=== PATIENT | female | born 1985 | race Caucasian/White ===

== ENCOUNTER → 2019-06-27 08:04 | Outpatient (BNVA) | payer MEDICARE, MEDICAID, SELFPAY | PROVIDERS: Family Provider Internal Medicine; PCP Family Medicine; Visit Provider Nurse Practitioner Psychiatric/Mental Health | DX: F40.10 Social phobia, unspecified (principal); F17.210 Nicotine dependence, cigarettes, uncomplicated; F60.3 Borderline personality disorder; F31.64 Bipolar disorder, current episode mixed, severe, with psychotic features | CPT/HCPCS: 99213 ==

== ENCOUNTER 2019-07-29 12:49 | Emergency (ER) | payer MEDICARE, MEDICAID, SELFPAY ==
[2019-07-29 13:06] VITALS: BP 131/82; PULSE 74; RESP 15; TEMP 36.6; O2SAT 98; BMI 41.4
--- NOTE | 2019-07-29 13:19 | XR_ITS ---
WS: [id number] RIGHT KNEE 3 VIEWS HISTORY: 33 years old Female with pain, injury AP, oblique, and lateral views right knee comparison 11/25/2010 FINDINGS: No fracture lucency or cortical disruption. No dislocation or subluxation. No osteolytic or osteoblas tic change. No soft tissue calcifications or radiopaque foreign body. No joint effusion. XR/XR knee RT 3V* [id number] IMPRESSION: No evidence of right knee fracture or dislocation.
--- NOTE | 2019-07-29 13:20 | W.ED.EXTPRO ---
HPI - Extremity Problem General: Chief complaint: Extremity Injury, Lower Stated complaint: right knee pain Time Seen by Provider: 07/29/19 13:16 History of Present Illness: HPI Narrative: Patient comes in today with injury to the right knee. Patient reports that 1 week ago on Wednesday the second she was going down the stairs and missed a step and catching herself she injured her right knee. Patient does not remember how she actually done it but she has had increasing pain since then. Patient reports a history of previous knee problems to the cartilage in the right knee. Review of Systems General: Reports: 10 or more systems reviewed and unremarkable except in HPI and below Musc: Reports: joint pain (right knee) PFSH ED PFSH: Statuses (acute, chronic, etc) shown below reflect problem list status as previously entered and may not be historically accurate Medical History (Updated 07/29/19 @ 13:42 by CECILE Remy) Bipolar disorder, current episode mixed, severe, with psychotic features (Acute) Borderline personality disorder (Acute) Chronic back pain (Acute) Cigarette nicotine dependence (Acute) Social phobia, unspecified (Acute) Family History (Updated 07/10/19 @ 07:56 by Earline Geller RN) Father Heart disease valve surgery Grandmother Diabetes paternal Social History (Updated 07/14/19 @ 08:56 by Earline Geller RN) Smoking and tobacco status: current every day smoker cigarettes Packs smoked per day: 1 Years cigarettes smoked: 11 Quit status (tobacco): considering quitting Second hand smoke exposure: Yes Alcohol intake: never Physical Exam Const: COMMON NORMALS: no apparent distress and oriented x3 GENERAL APPEARANCE: cooperative HENMT: COMMON NORMALS: normocephalic, external ears normal, EAC's normal, TM's normal bilaterally and external nose normal HEAD & SCALP: normal to inspection and normocephalic FACE & SINUS: normal facial exam NOSE: external nose normal GENERAL EAR: hearing not grossly impaired EXTERNAL EAR: Yes external ears normal EXTERNAL AUDITORY CANAL: EAC's normal TYMPANIC MEMBRANE: TM's normal bilaterally MOUTH: oral and palatal mucosa normal THROAT: posterior oropharynx normal Eye: COMMON NORMALS: PERRL and EOMs intact bilaterally PUPIL: Yes PERRL Neck/C-Spine: COMMON NORMALS: full ROM and no lymphadenopathy Lymph: LYMPHATIC: no lymphedema noted Chest: COMMONS NORMALS: inspection of chest normal and palpation of chest normal Resp: COMMON NORMALS: normal respiratory effort and clear to auscultation bilaterally AUSCULTATION: clear to auscultation bilaterally Cardio: COMMON NORMALS: regular rate and regular rhythm RATE: regular rate RHYTHM: regular rhythm GI: COMMON NORMALS: normal to inspection, nondistended, normoactive bowel sounds and non-tender : COMMON NORMALS: Yes no CVA tenderness BLADDER/KIDNEY EXAM: Yes no CVA tenderness Back/Pelvis: COMMON NORMALS: no CVA tenderness and thoracic and lumbar spine normal to inspection Extremity: NARRATIVE EXTREMITY EXAM: decreased range of motion of flexion and extension of the knee, medial joint tenderness, soft swelling. wjw GENERAL: Yes edema (right knee) Neuro: COMMON NORMALS: oriented x3, moves all extremities and no focal motor deficits Psych: COMMON NORMALS: mental status grossly normal and cooperative Skin: COMMON NORMALS: no rashes or lesions noted GENERAL SKIN EXAM: no rashes or lesions noted Course Vital Signs: Vital signs: Vital Signs Temperature 97.9 F 07/29/19 13:06 Pulse Rate 63 07/29/19 14:22 Respiratory Rate 16 07/29/19 14:22 Blood Pressure 131/82 07/29/19 13:06 Pulse Oximetry 97 07/29/19 14:22 MDM - Extremity (Nontraumatic) MDM Narrative: Medical decision making narrative: Patient comes in today with complaints of right knee pain. Patient appears in no pain at rest. Patient reported injury when she stepped down off a step wrong about 1 week ago. Exam notes some anterior swelling to the knee, normal laxity, decreased range of motion with flexion and extension. Differential diagnosis includes knee sprain, meniscal injury, arthritis, bursitis. X-ray was negative for any significant injury or abnormality. Reviewed exam with patient recommended activity as tolerated. Will place on diclofenac for pain and swelling. Recommend follow-up with primary care in 1 week for further evaluation and treatment. Discharge Plan Discharge Patient Disposition: Home, Self-Care Clinical Impression: Injury of knee, right Qualifiers: Encounter type: initial encounter Qualified Code(s): S89.91XA - Unspecified injury of right lower leg, initial encounter Condition: Stable Prescriptions: New diclofenac sodium 75 mg tablet,delayed release (DR/EC) 75 mg PO BID Qty: 20 RF: 0 No Action multivitamin with minerals [Hair,Skin and Nails] Tablet 1 tab PO DAILY RF: 0 trazodone 100 mg tablet 100 mg PO .QHS Qty: 30 RF: 4 topiramate [Topamax] 100 mg tablet 100 mg PO BID Qty: 60 RF: 4 topiramate [Topamax] 50 mg tablet 50 mg PO BID Qty: 60 RF: 4 lorazepam [Ativan] 0.5 mg tablet 0.5 mg PO BID PRN (Reason: anxiety) Qty: 60 RF: 3 albuterol sulfate [Ventolin HFA] 90 mcg/actuation HFA aerosol inhaler 2 puff INHALATION Q6H PRNRF: 0 albuterol sulfate 2.5 mg /3 mL (0.083 %) solution for nebulization 2.5 mg INHALATION QID PRNRF: 0 acetaminophen [Tylenol] 325 mg tablet 650 mg PO TID PRNRF: 0 haloperidol 2 mg tablet 2 mg PO BID Qty: 30 RF: 4 Discharge Orders: Discharge Order (Routine); Ordered 07/29/19 Ordered By: Karl Cordero Referrals: ALE GLASS DO [Family Provider] - Marisela De Leon MD [Primary Care Provider] - Discharge Diet: Usual diet Discharge Activity: Increase activity as tolerated Patient Instructions: Knee Sprain (ED) Activity Restrictions/Additional Instructions: Elastic bandage for discomfort and swelling Use crutches until you can walk comfortably on leg Ice or heat for further comfort Follow-up with primary care in one week Return to ER for distal redness and swelling to the knee Discharge Date/Time: 07/29/19 14:23 Coding Level of Care Code ED Histologist Technologist for Chg Fwd Exam Problem Focused
[2019-07-29] MEDS: ketorolac 30 mg/mL INJ IM (14:05)
[2019-07-29 14:22] VITALS: PULSE 63; RESP 16; O2SAT 97
== END 2019-07-29 14:23 | disposition home or self-care (01) ==
PROVIDERS: Emergency Provider Nurse Practitioner Family; Family Provider Internal Medicine; PCP Family Medicine
DX: S89.91XA Unspecified injury of right lower leg, initial encounter (principal); W18.43XA Slipping, tripping and stumbling without falling due to stepping from one level to another, initial encounter; F17.210 Nicotine dependence, cigarettes, uncomplicated
CPT/HCPCS: 73562; 96372; 99281; 99283; J1885

== ENCOUNTER 2019-08-16 07:00 | Day surgery (SDC) | payer MEDICARE, MEDICAID, SELFPAY ==
[2019-08-15 10:43] VITALS: BMI 41.8
[2019-08-15 10:56] LABS: OR HCG Qualitative Urine Negative (Negative)
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
[2019-08-15 11:28] LABS: Basophils % 0.4 %; Eosinophils # 0.1 10^3/uL (0.0-0.8); Eosinophils % 1.5 %; Hematocrit 44.1 % (37.0-47.0); Hemoglobin 14.9 g/dL (11.5-15.3); Lymphocytes # 2.9 10^3/uL (0.8-4.8); Lymphocytes % 30.3 %; Mean Corpuscular HGB Conc 33.8 g/dL (30.0-36.0); Mean Corpuscular Hemoglobin 29.4 pg (28.0-34.0); Mean Corpuscular Volume 87.2 fL (81-99); Mean Platelet Volume 10.1 fL (7.4-10.4); Monocytes # 0.6 10^3/uL (0.2-0.9); Monocytes % 5.9 %; Neutrophils # 5.8 10^3/uL (1.8-7.7); Neutrophils % 61.8 %; Nucleated Red Blood Cells % 0 %; Platelet Count 261 10^3/cmm (130-400); Red Blood Count 5.06 10^6/uL (4.1-5.3); White Blood Count 9.4 10^3/uL (4.0-10.0)
[2019-08-15 11:39] LABS: Alanine Aminotransferase 15 U/L (0-33); Albumin Level 4.4 g/dL (3.5-5.2); Alkaline Phosphatase 82 IU/L (35-105); Anion Gap 15.9 (5-19); Aspartate Amino Transferase 13 U/L (0-32); Blood Urea Nitrogen 14 mg/dL (6-20); Calcium 9.6 mg/dL (8.5-10.5); Carbon Dioxide 19 mmol/L (22-29); Chloride 106 mmol/L (98-107); Globulin 2.5 g/dL (1.3-4.6); Glomerular Filtration Rate 57.2 mL/min (90-130); Glucose 86 mg/dL (65-115); Potassium 3.9 mmol/L (3.5-5.1); Sodium 137 mmol/L (136-145); Total Bilirubin 0.2 mg/dL (0.15-1.2); Total Protein 6.9 g/dL (6.6-8.7)
[2019-08-15 16:20] LABS: Add Urine Microscopic? NO
[2019-08-15 16:36] LABS: Bilirubin Urine Neg (NEGATIVE); Blood Urine Neg (Negative); Glucose Urine UA Norm (Normal); Ketones Urine Negative (Negative); Leukocyte Esterase Urine Negative (Negative); Nitrate Urine Negative (Negative); Protein Urine Neg (Negative); Urine Appearance Clear (CLEAR); Urine Color Yellow (Yellow); Urobilinogen Urine Norm (Negative); pH Urine 7 (5-7)
[2019-08-16] VITALS (7 sets, daily range): BP systolic 131–153; BP diastolic 59–86; PULSE 60–83; RESP 16–20; TEMP 36.3–36.6; O2SAT 96–100
[2019-08-16] MEDS: sodium chloride 0.9% 1,000 ML 30 ML IV (07:36)
[2019-08-16] MEDS: ketorolac 30 mg/mL INJ IVP (07:36)
--- NOTE | 2019-08-16 07:39 | P.ANESUD_ITS ---
Pre-Anesthetic Update Pre-Anesthetic Assessment: Date of Surgery/Procedure: 08/16/19 Preop Jes gnosis: Desire permanent sterilization Proposed Procedure: Operation Date: 08/16/19 08:30 Proposed Procedures p Laparoscopic Tubal Fulguration 23049 Z30.2(Not Applicable) - Tyrell Nguyen MD Any changes to Pre-Anesthetic Assessment?: No Last Intake: Intake Last Liquid Date 08/15/19 Last Liquid Time 21:00 Last Solid Date 08/15/19 Last Solid Time 20:00 Labs Last 48hrs: Laboratory Results - last 48 hr 08/15/19 08/15/19 08/15/19 10:23 10:28 10:30 WBC 9.4 RBC 5.06 Hgb 14.9 Hct 44.1 MCV 87.2 MCH 29.4 MCHC 33.8 RDW 13.0 Plt Count 261 MPV 10.1 Neut % (Auto) 61.8 Lymph % (Auto) 30.3 [place] % (Auto) 5.9 Eos % (Auto) 1.5 Baso % (Auto) 0.4 Neut # (Auto) 5.8 Lymph # (Auto) 2.9 [place] # (Auto) 0.6 Eos # (Auto) 0.1 Baso # (Auto) 0.0 Nucleated RBC % (a uto) 0 Nucleated RBCs # 0.0 Sodium Potassium Chloride Carbon Dioxide Anion Gap BUN Creatinine GFR Calculation Glucose Calcium Total Bilirubin AST ALT Alkaline Phosphata se Total Protein Albumin Globulin Urine Color Yellow Urine Appearance Clear Urine pH 7 Ur Specific Gravit y 1.010 Urine Protein Neg Urine Glucose (UA) Norm Urine Ketones Negative Urine Blood Neg Urine Nitrate Negative Urine Bilirubin Neg Urine Urobilinogen Norm Ur Leukocyte Ida ase Negative Urine HCG, Qual Negative Blood Type Antibody Screen 08/15/19 08/15/19 10:30 10:30 WBC RBC Hgb Hct MCV MCH MCHC RDW Plt Count MPV Neut % (Auto) Lymph % (Auto) [place] % (Auto) Eos % (Auto) Baso % (Auto) Neut # (Auto) Lymph # (Auto) [place] # (Auto) Eos # (Auto) Baso # (Auto) Nucleated RBC % (a uto) Nucleated RBCs # Sodium 137 Potassium 3.9 Chloride 106 Carbon Dioxide 19 L Anion Gap 15.9 BUN 14 Creatinine 1.1 H GFR Calculation 57.2 L Glucose 86 Calcium 9.6 Total Bilirubin 0.2 AST 13 ALT 15 Alkaline Phosphata se 82 Total Protein 6.9 Albumin 4.4 Globulin 2.5 Urine Color Urine Appearance Urine pH Ur Specific Gravit y Urine Protein Urine Glucose (UA) Urine Ketones Urine Blood Urine Nitrate Urine Bilirubin Urine Urobilinogen Ur Leukocyte Ida ase Urine HCG, Qual Blood Type A Positive Antibody Screen Negative Vitals: Temperature 97.3 F L 08/16/19 07:11 Temperature Source Temporal Artery S can 08/16/19 07:11 Pulse Rate 78 08/16/19 07:11 Respiratory Rate 18 08/16/19 07:11 Blood Pressure 142/84 08/16/19 07:11 Blood Pressure Trish n 103 08/16/19 07:11 Pulse Oximetry 97 08/16/19 07:11 Oxygen Delivery Me thod 08/16/19 07:11 Exam: Pre-Anes Outpt Exam: alert, oriented x 3, clear to auscultation bilaterally and regular rate & rhythm Other Pertinent Information: Other Pertinent Information: No meds this morning Cardiac Studies: No Data to Display
--- NOTE | 2019-08-16 08:07 | P.ANESASSM_ITS ---
Pre-Anesthetic Assessment Pre-Anesthetic Assessment: Height/Weight: Height 1.78 m Weight 132.449 kg Temp Pulse Resp BP Pulse Ox 97.3 F L 78 18 142/84 97 08/16/19 07:11 08/16/19 07:11 08/16/19 07:11 08/16/19 07:11 08/16/19 07:11 Preop Diagnosis: Desire permanent sterilization Proposed Procedure: Operation Date: 08/16/19 08:30 Proposed Procedures p Laparoscopic Tubal Fulguration 34070 Z30.2(Not Applicable) - Tyrell Nguyne MD Last intake: Intake Last Liquid Date 08/15/19 Last Liquid Time 21:00 Last Solid Date 08/15/19 Last Solid Time 20:00 Social: Packs per day: 1 Pack years: 17 Exam: Pre-Anes Outpt Exam: alert, oriented x 3, clear to auscultation bilaterally and regular rate & rhythm Pulmonary: Pulmonary: Asthma GI: GI: Hiatus hernia Neuropsych: Neuropsych: Anxiety and Seizure Comments: 05/09 petit mal Anesthetic Plan: ASA status: 3 Meds/Allergies Current Medications: Current Medications Generic Name Dose Route Start Last Admin Trade Name Freq PRN Reason Stop Dose Admin Sodium Chloride 1,000 mls @ 30 ml s/hr 08/16/19 07:15 08/16/19 07:36 Sodium Chloride 0.9% IV 08/17/19 07:14 30 mls/hr .Q24H GRAY Administration PFSH Anesthesia PFSH: Social History Smoking and tobacco status: current every day smoker cigarettes Packs smoked per day: 1 Years cigarettes smoked: 11 Quit status (tobacco): considering quitting Second hand smoke exposure: Yes Alcohol intake: never Female Reproductive History: Date of last menstrual period: 08/06/19 Data Anesthesia CBC & Chem 7: 08/15/19 10:30 08/15/19 10:30 Other Labs: Laboratory Results - last 48 hr 08/15/19 08/15/19 08/15/19 10:23 10:28 10:30 WBC 9.4 RBC 5.06 Hgb 14.9 Hct 44.1 MCV 87.2 MCH 29.4 MCHC 33.8 RDW 13.0 Plt Count 261 MPV 10.1 Neut % (Auto) 61.8 Lymph % (Auto) 30.3 [place] % (Auto) 5.9 Eos % (Auto) 1.5 Baso % (Auto) 0.4 Neut # (Auto) 5.8 Lymph # (Auto) 2.9 [place] # (Auto) 0.6 Eos # (Auto) 0.1 Baso # (Auto) 0.0 Nucleated RBC % (auto) 0 Nucleated RBCs # 0.0 Sodium Potassium Chloride Carbon Dioxide Anion Gap BUN Creatinine GFR Calculation Glucose Calcium Total Bilirubin AST ALT Alkaline Phosphatase Total Protein Albumin Globulin Urine Color Yellow Urine Appearance Clear Urine pH 7 Ur Specific Bypro 1.010 Urine Protein Neg Urine Glucose (UA) Norm Urine Ketones Negative Urine Blood Neg Urine Nitrate Negative Urine Bilirubin Neg Urine Urobilinogen Norm Ur Leukocyte Esterase Negative Urine HCG, Qual Negative Blood Type Antibody Screen 08/15/19 08/15/19 10:30 10:30 WBC RBC Hgb Hct MCV MCH MCHC RDW Plt Count MPV Neut % (Auto) Lymph % (Auto) [place] % (Auto) Eos % (Auto) Baso % (Auto) Neut # (Auto) Lymph # (Auto) [place] # (Auto) Eos # (Auto) Baso # (Auto) Nucleated RBC % (auto) Nucleated RBCs # Sodium 137 Potassium 3.9 Chloride 106 Carbon Dioxide 19 L Anion Gap 15.9 BUN 14 Creatinine 1.1 H GFR Calculation 57.2 L Glucose 86 Calcium 9.6 Total Bilirubin 0.2 AST 13 ALT 15 Alkaline Phosphatase 82 Total Protein 6.9 Albumin 4.4 Globulin 2.5 Urine Color Urine Appearance Urine pH Ur Specific Bypro Urine Protein Urine Glucose (UA) Urine Ketones Urine Blood Urine Nitrate Urine Bilirubin Urine Urobilinogen Ur Leukocyte Esterase Urine HCG, Qual Blood Type A Positive Antibody Screen Negative Cardiac Studies: No Data to Display
--- NOTE | 2019-08-16 08:12 | W.PM.OPSUD ---
Surgery/Procedure H&P Update DATE OF PROCEDURE: August 16, 2019 DATE H&P PERFORMED: 08/15/19 H&P UPDATE INFORMATION: I have reviewed H&P completed within last 30 days, I have examined patient prior to procedure and No changes to prior documentation PREOP DIAGNOSIS: Desire permanent sterilization PLANNED PROCEDURE: Operation Date: 08/16/19 08:30 Proposed Procedures p Laparoscopic Tubal Fulguration 87737 Z30.2(Not Applicable) - Tyrell Nguyen MD
--- NOTE | 2019-08-16 09:09 | PM.OP ---
Operative Report Date of procedure: August 16, 2019 Pre-op Diagnosis: Desire permanent sterilization Post-op diagnosis: same Post-op Findings: normal uterus, fallopian tubes, ovaries, Procedure Done: laparoscopic bilateral fulguration salpingectomy. Removal of Nexplanon implant. Specimens removed/disposition: left and right fallopian tubes Surgeon: Tyrell Nguyen Anesthesia: General Estimated blood loss (mL): 5 IV fluids (mL): 650 Urine output (mL): 200 Complications: none Findings: normal pelvic anatomy, Nexplanon implant removal from right arm Condition: stable Disposition: PACU Brief History: 32-year-old female desire permanent sterilization and removal of Nexplanon implant. Procedure: After informed consent, the patient was taken to the operating room where general anesthesia was administered. She was placed in the dorsal lithotomy position and prepped and draped in sterile fashion. Pre-Procedure Time-Out verifying the correct patient identity, correct procedure verified with consent, correct site and side, correct patient position, availability of correct implants and any special equipment or requirements was performed and acknowledge by the OR team. The patient was examined under anesthesia and found to have a normal uterus with normal adnexa. A weighted speculum was placed in the vagina, and the anterior lip of cervix was grasped with the single toothed tenaculum. A uterine manipulator was advanced into the endocervical canal and uterus. The tenaculum was removed after uterine manipulator was secured. The speculum was removed from the vagina. An intraumbilical incision was made with a scalpel. While tenting up on the abdomen, a Verres needle was admitted into the intra-abdominal cavity. A saline drop test was performed and noted to be within normal limits. Pneumoperitoneum was attained with 4 liters of carbon dioxide. The Verres needle was removed. A 5 mm Opitc view trocar and sleeve were admitted into the abdomen and laparoscopic confirmation of location was achieved. A second incision was made 3 cm above the symphysis pubis, and a 5 mm trocar sleeves were admitted into the abdomen under direct laparoscopic visualization without complication. A survey revealed normal abdominal anatomy. A 5 mm blunt probe was advanced through the second trocar sleeve, and light manipulation of ovaries and uterus to assess the posterior aspects was performed. The pelvic survey shows normal uterus, left and right adnexa. The left ovary was noted with a follicular cyst. The patient was placed into Trendelenburg position. The fallopian tubes were inspected bilaterally and the fimbriated ends of the fallopian tubes were visualized bilaterally. Attention was then directed to the right side. The fallopian tube and mesosalpinx were grasped and the underlying mesosalpinx was cauterized/sealed and cut using the Voyant device. Serial cauterization/sealed and cutting was used to separate the fallopian tube from the underlying mesosalpinx until it could be amputated cutting it approximated 2 cm from the cornua. Attention was then turned to the contralateral fallopian tube, which was removed in similar fashion. Both specimens were removed through the trocar and sent to pathology. The instruments were removed. The suprapubic trocar port was removed under direct visualization insuring good hemostasis. The carbon dioxide was allowed to escape from the abdomen. The intraumbilical trocar sleeve was withdrawn under visualization with laparoscope in the sleeve to insure hemostasis. Then we proceeded to remove the Nexplanon implant from the right arm. The area surrounding the Nexplanon was prepared with sterile preparation and draped in the usual sterile manner. A skin incision was made over the distal aspect of the device. The capsule lysed sharply and the device removed using a hemostat. Hemostasis was assured. The site was dressed with Dermabond, SteriStrips and a pressure dressing. The skin incisions were closed with 3-O Monocryl subcuticular stich and Dermabond. The instruments were removed from the vagina, and excellent hemostasis was noted. The patient tolerated the procedure well, and sponge, lap and needle count were correct times two. The patient was taken to the recovery room in good condition.
--- NOTE | 2019-08-16 09:23 | SUR.OPER ---
0900 nexplanon removed from right upper arm, inspected by dr. sun, intact., disposed of in biohazard. dressing applied.
[2019-08-16] MEDS: HYDROcodone-acetaminophen 5-325 mg Tablet 1 TAB PO (10:13)
== END 2019-08-16 11:03 | disposition home or self-care (01) ==
PROVIDERS: Family Provider Internal Medicine; PCP Internal Medicine; Visit Provider Obstetrics & Gynecology
PROC: (CPT 58661; principal; 2019-08-16 08:30)
DX: Z30.2 Encounter for sterilization (principal); J45.909 Unspecified asthma, uncomplicated; F17.210 Nicotine dependence, cigarettes, uncomplicated; Z83.3 Family history of diabetes mellitus; Z82.49 Family history of ischemic heart disease and other diseases of the circulatory system
CPT/HCPCS: 58670; 12345; 36415; 80053; 81003; 81025; 84703; 85025; 86850; 86900; 88302; 96374; J0690; J1100; J1885; J2001; J2250; J2405; J2704; J2710; J3010; J3490; J7030

== ENCOUNTER → 2019-09-19 07:19 | Outpatient (BNVA) | payer MEDICARE, MEDICAID, SELFPAY | PROVIDERS: Family Provider Internal Medicine; PCP Internal Medicine; Visit Provider Nurse Practitioner Psychiatric/Mental Health | DX: F40.10 Social phobia, unspecified (principal); F60.3 Borderline personality disorder; F17.210 Nicotine dependence, cigarettes, uncomplicated; F31.64 Bipolar disorder, current episode mixed, severe, with psychotic features; F43.12 Post-traumatic stress disorder, chronic | CPT/HCPCS: 99213 ==

== ENCOUNTER → 2020-01-25 09:14 | Outpatient (BNVA) | payer MEDICARE, MEDICAID, SELFPAY | PROVIDERS: Family Provider Internal Medicine; PCP Internal Medicine; Visit Provider Nurse Practitioner Psychiatric/Mental Health | DX: F31.64 Bipolar disorder, current episode mixed, severe, with psychotic features (principal); F60.3 Borderline personality disorder; Z63.4 Disappearance and death of family member; F17.210 Nicotine dependence, cigarettes, uncomplicated; F40.10 Social phobia, unspecified | CPT/HCPCS: 99214 ==

== ENCOUNTER → 2020-05-07 07:42 | Outpatient (BNVA) | payer MEDICARE, MEDICAID, SELFPAY | PROVIDERS: Family Provider Internal Medicine; PCP Internal Medicine; Visit Provider Nurse Practitioner Psychiatric/Mental Health | DX: F31.64 Bipolar disorder, current episode mixed, severe, with psychotic features (principal); F60.3 Borderline personality disorder; F40.10 Social phobia, unspecified; F17.210 Nicotine dependence, cigarettes, uncomplicated; Z63.4 Disappearance and death of family member; F41.1 Generalized anxiety disorder; F43.12 Post-traumatic stress disorder, chronic | CPT/HCPCS: 99214 ==

== ENCOUNTER → 2020-05-28 07:55 | Outpatient (BNVA) | payer MEDICARE, MEDICAID, SELFPAY | PROVIDERS: Family Provider Internal Medicine; PCP Internal Medicine; Visit Provider Nurse Practitioner Psychiatric/Mental Health | DX: F31.64 Bipolar disorder, current episode mixed, severe, with psychotic features (principal); F60.3 Borderline personality disorder; F40.10 Social phobia, unspecified; Z63.4 Disappearance and death of family member | CPT/HCPCS: 99213 ==

== ENCOUNTER 2020-05-30 16:31 | Emergency (ER) | payer MEDICARE, MEDICAID, SELFPAY ==
[2020-05-30 16:43] VITALS: BP 168/110; PULSE 71; RESP 18; TEMP 36.6; O2SAT 98; BMI 43.9
--- NOTE | 2020-05-30 17:08 | W.ED.DENTAL ---
HPI - Dental/Oral General: Chief complaint: Dental/Oral Stated complaint: fever due to tooth infection Time Seen by Provider: 05/30/20 16:49 Source: patient History of Present Illness: HPI Narrative: Patient is well-appearing 34-year-old female seen for right-sided tooth pain. She states that she was initially on amoxicillin but switched to Augmentin 2 days ago. She complains of pain along her right mandible as well as extending down the anterior aspect of her throat. She states she had a temperature of 99.2 at home causing her to be concerned that the infection was spreading. She has been taking [place] and ibuprofen for pain. She denies nausea, vomiting, shortness of breath, cough, chest pain, and has no other acute complaints. Review of Systems General: Reports: 10 or more systems reviewed and unremarkable except in HPI and below PFSH ED PFSH: Medical History (Updated 05/30/20 @ 17:08 by Altaf Greco MD) Aftercare following surgery of the genitourinary system Bereavement Unexpected loss of mother in October 2019 Bipolar disorder, current episode mixed, severe, with psychotic features Borderline personality disorder Chronic back pain Cigarette nicotine dependence H/O drainage of abscess SOB (shortness of breath) Social phobia, unspecified Surgical History History of surgery on arm 2014- left arm, Nexplanon broke in arm and had to be surgically removed Status post bilateral salpingectomy 08/16/2019- laparoscopic bilateral fulguration salpingectomy and removal of Nexplanon implant on 08/16/[address] Nguyen at [facility] Family History Father Heart disease valve surgery Grandmother Diabetes paternal Social History Smoking and tobacco status: current every day smoker cigarettes Packs smoked per day: 1 Years cigarettes smoked: 11 Quit status (tobacco): considering quitting Second hand smoke exposure: Yes Alcohol intake: never Female Reproductive History: Date of last menstrual period: 08/06/19 Physical Exam Const: COMMON NORMALS: no acute distress, patient oriented x3 and alert HENMT: COMMON NORMALS: normocephalic and atraumatic HEAD & SCALP: normocephalic and atraumatic THROAT: posterior oropharynx normal, tonsils normal and uvula midline; posterior oropharynx not abnormal OTHER: No submental woodiness, firmness, and she is able to open her mouth fully. There is no abscess amenable to incision and drainage. There is no palpable mass or abscess of the jaw. Tonsils are equal without exudate. Eye: COMMON NORMALS: Equal, round and reactive pupils present, EOMs intact bilaterally and no scleral icterus PUPIL: Yes Equal, round and reactive pupils present Resp: COMMON NORMALS: normal respiratory effort and No retractions Cardio: COMMON NORMALS: regular rate, regular rhythm and No murmurs present (Cardio) RATE: regular rate RHYTHM: regular rhythm GI: COMMON NORMALS: Normal to inspection, nondistended, normoactive bowel sounds present, Soft to palpation and non-tender PALPATION: Yes Soft to palpation Neuro: COMMON NORMALS: patient oriented x3 SENSORIUM/ORIENTATION: Yes alert Skin: COMMON NORMALS: no rashes or lesions noted GENERAL SKIN EXAM: no rashes or lesions noted Course Vital Signs: Vital signs: Vital Signs Temperature 97.9 F 05/30/20 16:43 Pulse Rate 71 05/30/20 16:43 Respiratory Rate 18 05/30/20 16:43 Blood Pressure 168/110 05/30/20 16:43 Pulse Oximetry 98 05/30/20 16:43 MDM - Dental/Oral MDM Narrative: Medical decision making narrative: Patient remained hemodynamically stable through ED course. There is no evidence of peritonsillar abscess, retropharyngeal abscess, or Maddy's angina. The submental space is soft and there is no swelling under the tongue. She has no lymphadenopathy of the neck or jaw or preauricular region. I believe that her Augmentin is working appropriately. She will be given a dose of IM Decadron and Toradol for pain and subjective swelling. She knows she is always welcome back in the emergency department if her symptoms get worse before outpatient follow-up. Discharge Plan Discharge Patient Disposition: Home Clinical Impression: Pain in a tooth or teeth Condition: Stable Prescriptions: No Action multivitamin with minerals [Hair,Skin and Nails] Tablet 1 tab PO DAILY@21 RF: 0 albuterol sulfate [Ventolin HFA] 90 mcg/actuation HFA aerosol inhaler 2 puff INHALATION Q6H PRN (Reason: Shortness Of Breath) RF: 0 albuterol sulfate 2.5 mg /3 mL (0.083 %) solution for nebulization 2.5 mg INHALATION QID PRN (Reason: asthma) RF: 0 acetaminophen [Tylenol] 325 mg tablet 650 mg PO TID PRN (Reason: pain) RF: 0 haloperidol 1 mg tablet 1 mg PO BID PRN (Reason: psychosis) Qty: 60 RF: 3 lorazepam [Ativan] 0.5 mg tablet 0.5 mg PO DAILY PRN (Reason: anxiety) Qty: 30 RF: 1 hydrocodone-acetaminophen 5-325 mg tablet 1 tab PO Q4H RF: 0 ibuprofen 200 mg Tablet 400 mg PO PRN RF: 0 amoxicillin-pot clavulanate 875-125 mg tablet 1 tab PO Q12H RF: 0 trazodone 50 mg tablet 50 mg PO DAILY@21 PRN (Reason: sleep) RF: 0 Topamax 50 mg tablet 50 mg PO DAILY@21 RF: 0 Discharge Orders: Discharge ED (Routine); Ordered 05/30/20 Ordered By: Altaf Greco Referrals: Alejandra Mariscal, DO [Primary Care Provider] - (If your jaw swells worse and you are unable to open it or if you have trouble breathing or if you have trouble swallowing, please do not hesitate to return to the emergency department immediately.) Discharge Diet: Advance as tolerated Discharge Activity: Resume usual activity Coding Level of Care Code ED Subway Repair Supervisor for Viji Fwnaomi Exam Detailed
[2020-05-30] MEDS: dexamethasone 4 mg/mL INJ 10 MG IM (17:10)
[2020-05-30] MEDS: ketorolac 30 mg/mL INJ IM (17:11)
== END 2020-05-30 17:21 | disposition home or self-care (01) ==
PROVIDERS: Emergency Provider Student in an Organized Health Care Education/Training Program; PCP Internal Medicine
DX: K08.89 Other specified disorders of teeth and supporting structures (principal); F17.210 Nicotine dependence, cigarettes, uncomplicated
CPT/HCPCS: 12345; 96372; 99281; 99283; J1100; J1885

== ENCOUNTER → 2020-07-29 09:27 | Outpatient (BNVA) | payer MEDICARE, MEDICAID, SELFPAY | PROVIDERS: PCP Internal Medicine; Visit Provider Nurse Practitioner Psychiatric/Mental Health | DX: F31.64 Bipolar disorder, current episode mixed, severe, with psychotic features (principal); F60.3 Borderline personality disorder; F40.10 Social phobia, unspecified; F17.210 Nicotine dependence, cigarettes, uncomplicated; Z63.4 Disappearance and death of family member | CPT/HCPCS: 99214 ==

== ENCOUNTER 2020-09-01 21:36 | Emergency (ER) | payer MEDICARE, MEDICAID, SELFPAY ==
[2020-09-01 21:57] VITALS: BP 119/75; PULSE 71; RESP 16; TEMP 36.4; O2SAT 97; BMI 45.9
--- NOTE | 2020-09-01 22:14 | ECG_ITS ---
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 Measurements Intervals [place] Rate: 68 P: 23 [place]: 147 QRS: 6 QRSD: 109 T: 33 QT: 375 QTc: 400 Interpretive Statements SINUS RHYTHM POSSIBLE ANTERIOR MYOCARDIAL INFARCTION [30 ms Q WAVE IN V3/V4, OR R < 0.2 mV IN V4], OF INDETERMINATE AGE WARNING: DATA QUALITY MAY AFFECT INTERPRETATION Compared to ECG 09/12/2018 19:22:12 ST (T wave) deviation no longer present Myocardial infarct finding still present Electronically Signed On 09-02-2020 23:51:37 CDT by Alla Jones M.D. [id number]
[2020-09-01] MEDS: lidocaine 2% viscous 15 ML, aluminum-mag hydrox-simethicon 30 ML, sucralfate oral liq 1 GM PO (23:13)
[2020-09-01 23:25] VITALS: BP 143/90; PULSE 68; RESP 16; O2SAT 97
[2020-09-01 23:30] VITALS: BP 120/74; PULSE 68; RESP 16; O2SAT 99
[2020-09-01 23:34] LABS: Basophils # 0.1 10^3/uL (0.0-0.1); Basophils % 0.5 %; Eosinophils # 0.2 10^3/uL (0.0-0.8); Hematocrit 43.1 % (37.0-47.0); Hemoglobin 14.7 g/dL (11.5-15.3); Lymphocytes # 3.6 10^3/uL (0.8-4.8); Lymphocytes % 32.9 %; Mean Corpuscular HGB Conc 34.1 g/dL (30.0-36.0); Mean Corpuscular Hemoglobin 30.2 pg (28.0-34.0); Mean Corpuscular Volume 88.7 fL (81-99); Mean Platelet Volume 9.1 fL (7.4-10.4); Monocytes # 0.6 10^3/uL (0.2-0.9); Monocytes % 5.4 %; Neutrophils # 6.42 10^3/uL (1.8-7.7); Neutrophils % 58.9 %; Nucleated Red Blood Cells % 0 %; Platelet Count 290 10^3/cmm (130-400); Red Blood Count 4.86 10^6/uL (4.1-5.3); Red Cell Distribution Width 12.2 % (12.1-15.1); White Blood Count 10.9 10^3/uL (4.0-10.0)
[2020-09-01 23:37] LABS: Add Urine Microscopic? NO
[2020-09-01 23:40] LABS: Bilirubin Urine Neg (Negative); Blood Urine Neg (Negative); Glucose Urine UA Norm (Normal); Ketones Urine Negative (Negative); Leukocyte Esterase Urine Negative (Negative); Nitrate Urine Negative (Negative); Protein Urine Neg (Negative); Specific Gravity, Urine 1.015 (1.005-1.030); Urine Appearance Clear (CLEAR); Urine Color Yellow (Yellow); Urobilinogen Urine Norm (Negative); pH Urine 5 (5-7)
[2020-09-01 23:50] LABS: HCG, Serum Qual Negative (Negative)
--- NOTE | 2020-09-01 23:56 | CTR_ITS ---
PROCEDURE INFORMATION: Exam: CT Neck With Contrast Exam date and time: 09/01/2020 12:32 AM Age: 34 years old Clinical indication: Dysphagia / difficulty swallowing; Patient HX: C/O throat tightness and difficulty swallowing; Additional info: Neck swelling, trouble swallowing TECHNIQUE: Imaging protocol: Computed tomography images of the neck with intravenous contrast. Radiation optimization: All CT scans at this facility use at least one of these dose optimization techniques: automated exposure control; mA and/or kV adjustment per patient size (includes targeted exams where dose is matched to clinical indication); or iterative reconstruction. Contrast material: OMNI 300; Contrast volume: 95 ml; Contrast route: INTRAVENOUS (IV); COMPARISON: No relevant prior studies available. RADIATION DOSE METRICS: Total DLP (mGy-cm): 805.78 FINDINGS: Nasopharynx: Unremarkable. Oropharynx: Mild tonsillar enlargement may reflect an underlying infectious process, negative for abscess. Hypopharynx: Unremarkable. Larynx: Unremarkable. Normal epiglottis. Retropharyngeal space: Unremarkable. Submandibular/Parotid glands: Normal. Glands are normal in size. Thyroid: Normal. No enlarged or calcified nodules. Lymph nodes: Unremarkable. No lymphadenopathy. Trachea: Visualized trachea is unremarkable. Lungs: Unremarkable as visualized. Bones/joints: Unremarkable. No acute fracture. Soft tissues: Unremarkable. No significant soft tissue swelling. CT/CT neck w con* [id number] IMPRESSION: Mild tonsillar enlargement may reflect an underlying infectious process, negative for abscess. Radiation Dose CTDIVOL = (mGy): DLP = 805.78 (mGy-cm)
[2020-09-01 23:59] LABS: Alanine Aminotransferase 17 U/L (0-33); Albumin Level 4.3 g/dL (3.5-5.2); Alkaline Phosphatase 76 IU/L (35-105); Anion Gap 16.8 (5-19); Aspartate Amino Transferase 14 U/L (0-32); Blood Urea Nitrogen 18 mg/dL (6-20); Calcium 9.2 mg/dL (8.5-10.5); Carbon Dioxide 22 mmol/L (22-29); Chloride 103 mmol/L (98-107); Glomerular Filtration Rate 56.9 mL/min (90-130); Glucose 89 mg/dL (65-115); Osmolality Calculated 287 mOsm/kg (285-295); Potassium 3.8 mmol/L (3.5-5.1); Sodium 138 mmol/L (136-145); Total Bilirubin 0.2 mg/dL (0.15-1.2); Total Protein 6.3 g/dL (6.6-8.7)
[2020-09-02] VITALS: BP 114/74; PULSE 68; RESP 16; O2SAT 100
[2020-09-02 00:01] LABS: Troponin T (5th) Once 6 ng/L (0-10)
[2020-09-02 00:30] VITALS: BP 124/74; PULSE 62; RESP 16; O2SAT 97
[2020-09-02] MEDS: iohexol 300 mg/mL 100 mL Btl IV (00:39)
[2020-09-02 01:00] VITALS: BP 117/70; PULSE 64; RESP 16; O2SAT 100
[2020-09-02 01:30] VITALS: BP 158/74; PULSE 52; RESP 16; O2SAT 99
[2020-09-02 02:00] VITALS: BP 162/87; PULSE 59; RESP 18; O2SAT 97
[2020-09-02] MEDS: dexamethasone 10 mg/mL INJ IVP (02:15)
[2020-09-02] MEDS: cephALEXin 500 mg Capsule PO (02:15)
[2020-09-02 02:25] VITALS: BP 163/80; PULSE 56; RESP 18; O2SAT 96
--- NOTE | 2020-09-02 03:27 | W.ED.CHESTPA ---
HPI - Chest Pain General: Chief Complaint: Chest Pain Stated Complaint: tightness in throat/hard to breath/chest pain Time Seen by Provider: 09/01/20 22:53 History of Present Illness: HPI narrative: 34-year-old female complains of 1 month of symptoms. The symptoms include throat and chest tightness, that at times make it hard to swallow or breathe. She notes she has trouble swallowing food. The tightness and discomfort radiates up into her throat. She denies fever. She denies syncope or diaphoresis. She has not had a cough. MD complaint: chest discomfort Timing of current episode: constant Prior episodes: Yes Onset: during rest Pain location: substernal Pain radiation: neck Severity: moderate Quality: tightness, aching and heaviness Relieving factors: nothing Exacerbating factors: nothing Associated symptoms: Reports dyspnea and nausea; Deny abdominal pain, fever(s), palpitations or vomiting Review of Systems Const: Denies: fever(s) Eyes: Denies: change in vision ENMT: Reports: throat pain Card: Denies: palpitations Resp: Reports: dyspnea GI: Reports: nausea; Denies: abdominal pain or vomiting PFS ED PFSH: Medical History (Updated 09/02/20 @ 01:51 by Jean Paul Morel DO) Aftercare following surgery of the genitourinary system Bereavement Unexpected loss of mother in October 2019 Bipolar disorder, current episode mixed, severe, with psychotic features Borderline personality disorder Chronic back pain Cigarette nicotine dependence H/O drainage of abscess SOB (shortness of breath) Social phobia, unspecified Surgical History History of surgery on arm 2014- left arm, Nexplanon broke in arm and had to be surgically removed Status post bilateral salpingectomy 08/16/2019- laparoscopic bilateral fulguration salpingectomy and removal of Nexplanon implant on 08/16/[address] Nguyen at [facility] Family History Father Heart disease valve surgery Grandmother Diabetes paternal Social History Smoking and tobacco status: current every day smoker cigarettes Packs smoked per day: 1 Years cigarettes smoked: 11 Quit status (tobacco): considering quitting Second hand smoke exposure: Yes Alcohol intake: never Female Reproductive History: Date of last menstrual period: 08/06/19 Physical Exam Const: GENERAL APPEARANCE: well developed ORIENTATION/CONSCIOUSNESS: Yes oriented to person, Yes oriented to place and Yes oriented to time HENMT: COMMON NORMALS: normocephalic, external ears normal and Normal external nose present HEAD & SCALP: normocephalic; no scalp tenderness FACE & SINUS: normal facial exam NOSE: Normal external nose present and No nasal discharge present EXTERNAL EAR: Yes external ears normal MOUTH: tongue normal TEETH & GINGIVA: no abnormal tooth and associated gingiva THROAT: abnormal tonsil bilateral erythema and hypertrophy; no exudates; no peritonsillar mass Eye: COMMON NORMALS: Equal, round and reactive pupils present, EOMs intact bilaterally and conjunctivae normal EYELID: eyelids normal CONJUNCTIVA: Yes conjunctivae normal PUPIL: Yes Equal, round and reactive pupils present Neck/C-Spine: GENERAL: No tracheal deviation Chest: COMMONS NORMALS: normal inspection of the chest CHEST: No tenderness Resp: COMMON NORMALS: clear to auscultation bilaterally EFFORT & INSPECTION: No tachypneic, No respiratory distress, No retractions, No uses accessory muscles and No tracheal deviation AUSCULTATION: clear to auscultation bilaterally, no rhonchi, no wheezes and lung sounds not diminished Cardio: COMMON NORMALS: regular rate and regular rhythm RATE: regular rate RHYTHM: regular rhythm HEART SOUNDS: no murmurs PERIPHERAL PULSES: radial pulses present GI: INSPECTION: No abdominal distension AUSCULTATION: No Hyperactive bowel sounds present and No Hypoactive bowel sounds present PALPATION: No Guarding due to palpation present (GI) and No Rigid due to palpation PERCUSSION: no dullness to percussion and no tympanic to percussion Neuro: SENSORIUM/ORIENTATION: Yes oriented to person, Yes oriented to place and Yes oriented to time Psych: COMMON NORMALS: mental status grossly normal Skin: COMMON NORMALS: no rashes or lesions noted GENERAL SKIN EXAM: no rashes or lesions noted Course Vital Signs: Vital signs: Vital Signs Temperature 97.5 F L 09/01/20 21:57 Pulse Rate 56 L 09/02/20 02:25 Respiratory Rate 18 09/02/20 02:25 Blood Pressure 163/80 09/02/20 02:25 Pulse Oximetry 96 09/02/20 02:25 MDM - Chest Pain Lab Data: Lab results narrative: 34-year-old female 1 month of symptoms of chest and throat swelling, discomfort, tightness. White blood cell count is 10.9. Creatinine is 1.1. Troponin is normal at six. EKG shows sinus bradycardia with no acute ST changes. CT soft tissue of the neck shows tonsillar enlargement consistent with inflammation or infection. She will be given dexamethasone for the swelling, Keflex to cover bacterial pharyngitis, and a PPI as this is likely gastroesophageal reflux causing her symptoms. Labs: Lab Results 09/01/20 09/01/20 09/01/20 Range/Units 23:20 23:20 23:20 WBC 10.9 H (4.0-10.0) 10^3/ uL RBC 4.86 (4.1-5.3) 10^6/u L Hgb 14.7 (11.5-15.3) g/dL Hct 43.1 (37.0-47.0) % MCV 88.7 (81-99) fL MCH 30.2 (28.0-34.0) pg MCHC 34.1 (30.0-36.0) g/dL RDW 12.2 (12.1-15.1) % Plt Count 290 (130-400) 10^3/c mm MPV 9.1 (7.4-10.4) fL Neut % (Auto) 58.9 % Lymph % (Auto) 32.9 % [place] % (Auto) 5.4 % Eos % (Auto) 2.0 % Baso % (Auto) 0.5 % Neut # (Auto) 6.42 (1.8-7.7) 10^3/u L Lymph # (Auto) 3.6 (0.8-4.8) 10^3/u L [place] # (Auto) 0.6 (0.2-0.9) 10^3/u L Eos # (Auto) 0.2 (0.0-0.8) 10^3/u L Baso # (Auto) 0.1 (0.0-0.1) 10^3/u L Nucleated RBC % (a uto) 0 % Nucleated RBCs # 0.0 /100WBC Sodium 138 (136-145) mmol/L Potassium 3.8 (3.5-5.1) mmol/L Chloride 103 (98-107) mmol/L Carbon Dioxide 22 (22-29) mmol/L Anion Gap 16.8 (5-19) BUN 18 (6-20) mg/dL Creatinine 1.1 H (0.5-0.9) mg/dL GFR Calculation 56.9 L (90-130) mL/min Glucose 89 (65-115) mg/dL Calculated Osmolal ity 287 (285-295) mOsm/k g Calcium 9.2 (8.5-10.5) mg/dL Total Bilirubin 0.2 (0.15-1.2) mg/dL AST 14 (0-32) U/L ALT 17 (0-33) U/L Alkaline Phosphata se 76 (35-105) IU/L Troponin T Gen 5 n g/L 6 (0-10) ng/L Total Protein 6.3 L (6.6-8.7) g/dL Albumin 4.3 (3.5-5.2) g/dL Globulin 2.0 (1.3-4.6) g/dL HCG, Qual (Negative) Urine Color (Yellow) Urine Appearance (CLEAR) Urine pH (5-7) Ur Specific Gravit y (1.005-1.030) Urine Protein (Negative) Urine Glucose (UA) (Normal) Urine Ketones (Negative) Urine Blood (Negative) Urine Nitrate (Negative) Urine Bilirubin (Negative) Urine Urobilinogen (Negative) mg/dL Ur Leukocyte Ida ase (Negative) 09/01/20 09/01/20 Range/Units 23:20 23:25 WBC (4.0-10.0) 10^3/ uL RBC (4.1-5.3) 10^6/u L Hgb (11.5-15.3) g/dL Hct (37.0-47.0) % MCV (81-99) fL MCH (28.0-34.0) pg MCHC (30.0-36.0) g/dL RDW (12.1-15.1) % Plt Count (130-400) 10^3/c mm MPV (7.4-10.4) fL Neut % (Auto) % Lymph % (Auto) % [place] % (Auto) % Eos % (Auto) % Baso % (Auto) % Neut # (Auto) (1.8-7.7) 10^3/u L Lymph # (Auto) (0.8-4.8) 10^3/u L [place] # (Auto) (0.2-0.9) 10^3/u L Eos # (Auto) (0.0-0.8) 10^3/u L Baso # (Auto) (0.0-0.1) 10^3/u L Nucleated RBC % (a uto) % Nucleated RBCs # /100WBC Sodium (136-145) mmol/L Potassium (3.5-5.1) mmol/L Chloride (98-107) mmol/L Carbon Dioxide (22-29) mmol/L Anion Gap (5-19) BUN (6-20) mg/dL Creatinine (0.5-0.9) mg/dL GFR Calculation (90-130) mL/min Glucose (65-115) mg/dL Calculated Osmolal ity (285-295) mOsm/k g Calcium (8.5-10.5) mg/dL Total Bilirubin (0.15-1.2) mg/dL AST (0-32) U/L ALT (0-33) U/L Alkaline Phosphata se (35-105) IU/L Troponin T Gen 5 n g/L (0-10) ng/L Total Protein (6.6-8.7) g/dL Albumin (3.5-5.2) g/dL Globulin (1.3-4.6) g/dL HCG, Qual Negative (Negative) Urine Color Yellow (Yellow) Urine Appearance Clear (CLEAR) Urine pH 5 (5-7) Ur Specific Gravit y 1.015 (1.005-1.030) Urine Protein Neg (Negative) Urine Glucose (UA) Norm (Normal) Urine Ketones Negative (Negative) Urine Blood Neg (Negative) Urine Nitrate Negative (Negative) Urine Bilirubin Neg (Negative) Urine Urobilinogen Norm (Negative) mg/dL Ur Leukocyte Ida ase Negative (Negative) Discharge Plan Discharge Patient Disposition: Home Clinical Impression: Pharyngitis, chronic Condition: Stable Prescriptions: New Prevacid 30 mg capsule,delayed release(DR/EC) 30 mg PO DAILY Qty: 30 RF: 0 Keflex 500 mg capsule 500 mg PO Q6H 10 Days Qty: 40 RF: 0 No Action Topamax 50 mg tablet 50 mg PO .bedtime Qty: 30 RF: 6 trazodone 50 mg tablet 50 mg PO .bedtime PRN (Reason: sleep) Qty: 30 RF: 3 multivitamin with minerals [Hair,Skin and Nails] Tablet 1 tab PO DAILY@21 RF: 0 albuterol sulfate [Ventolin HFA] 90 mcg/actuation HFA aerosol inhaler 2 puff INHALATION Q6H PRN (Reason: Shortness Of Breath) RF: 0 albuterol sulfate 2.5 mg /3 mL (0.083 %) solution for nebulization 2.5 mg INHALATION QID PRN (Reason: asthma) RF: 0 acetaminophen [Tylenol] 325 mg tablet 650 mg PO TID PRN (Reason: pain) RF: 0 haloperidol 1 mg tablet 1 mg PO BID PRN (Reason: psychosis) Qty: 60 RF: 3 lorazepam [Ativan] 0.5 mg tablet 0.5 mg PO DAILY PRN (Reason: anxiety) Qty: 30 RF: 1 ibuprofen 200 mg Tablet 400 mg PO PRN RF: 0 Discharge Orders: Discharge ED (Routine); Ordered 09/02/20 Ordered By: Jean Paul Morel Referrals: Alejandra Mariscal, [Primary Care Provider] - 4-7 days Discharge Diet: Advance as tolerated Discharge Activity: Increase activity as tolerated Patient Instructions: Pharyngitis (ED) Activity Restrictions/Additional Instructions: Return for fever, trouble breathing, inability to swallow, other concerning symptoms. Follow-up with your doctor. 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
== END 2020-09-02 02:26 | disposition home or self-care (01) ==
PROVIDERS: Nurse Practitioner Family; Emergency Provider Emergency Medicine; PCP Internal Medicine
DX: J31.2 Chronic pharyngitis (principal); F17.210 Nicotine dependence, cigarettes, uncomplicated
CPT/HCPCS: 70491; 80053; 81003; 84484; 84703; 85025; 93005; 96374; 99283; J1100; Q9967

== ENCOUNTER → 2020-09-24 09:17 | Outpatient (BNVA) | payer MEDICARE, MEDICAID, SELFPAY | PROVIDERS: PCP Internal Medicine; Visit Provider Nurse Practitioner Psychiatric/Mental Health | DX: F31.64 Bipolar disorder, current episode mixed, severe, with psychotic features (principal); F60.3 Borderline personality disorder; F17.210 Nicotine dependence, cigarettes, uncomplicated; F40.10 Social phobia, unspecified; Z63.4 Disappearance and death of family member; Z79.899 Other long term (current) drug therapy | CPT/HCPCS: 99214 ==

== ENCOUNTER 2020-10-10 09:04 | Outpatient (CLI) | payer MEDICARE, MEDICAID, SELFPAY ==
[2020-10-10 10:17] LABS: Cholesterol 180 mg/dL (0-200); HDL Cholesterol 45 mg/dL (60-100); LDL Cholesterol Calculated 100 mg/dL (50-129); LDL HDL Ratio 2.22 RATIO (0.00-3.22); Triglycerides 177 mg/dL (0-150)
[2020-10-10 10:20] LABS: Estmated Average Glucose 100; Hemoglobin A1C 5.1 % (4.0-6.0)
== END 2020-10-10 09:05 | disposition home or self-care (01) ==
LOC: LAB 09:11
PROVIDERS: PCP Internal Medicine; Visit Provider Nurse Practitioner Psychiatric/Mental Health
DX: Z79.899 Other long term (current) drug therapy (principal)
CPT/HCPCS: 36415; 80061; 83036

== ENCOUNTER → 2020-11-01 09:42 | Outpatient (BNVA) | payer MEDICARE, MEDICAID, SELFPAY | PROVIDERS: PCP Internal Medicine; Visit Provider Nurse Practitioner Psychiatric/Mental Health | DX: F31.64 Bipolar disorder, current episode mixed, severe, with psychotic features (principal); F60.3 Borderline personality disorder; F40.10 Social phobia, unspecified; F17.210 Nicotine dependence, cigarettes, uncomplicated; Z63.4 Disappearance and death of family member | CPT/HCPCS: 99214 ==

== ENCOUNTER → 2021-01-02 07:40 | Outpatient (BNVA) | payer MEDICARE, MEDICAID, SELFPAY | PROVIDERS: PCP Internal Medicine; Visit Provider Nurse Practitioner Psychiatric/Mental Health | DX: F31.64 Bipolar disorder, current episode mixed, severe, with psychotic features (principal); F60.3 Borderline personality disorder; F40.10 Social phobia, unspecified; F17.210 Nicotine dependence, cigarettes, uncomplicated; Z63.4 Disappearance and death of family member | CPT/HCPCS: 99214 ==

== ENCOUNTER 2021-02-03 09:13 | Outpatient (CLI) | payer MEDICARE, MEDICAID, SELFPAY ==
--- NOTE | 2021-02-03 09:20 | FL_ITS ---
WS: [id number] ESOPHAGRAM TECHNIQUE: Double contrast examination was performed with thin and thick barium. Upright and CALVO imag es were obtained. CLINICAL INFORMATION: DYSPHAGIA COMPARISON: None. FINDINGS: Swallowing: Normal oropharyngeal phase. Small amount of penetration on the dynamic images. No visuali zed aspiration. Small shelf-like indentation at the pharyngeal esophageal junction consistent with a small esophageal web. This can be further evaluated with endoscopy. Normal transit of the barium tabl et in this area. Esophagus: Mild esophageal dysmotility with mild reflux visualized on the supine imaging. Small esoph ageal hiatal hernia. No esophageal stricture or obstructing mass. Gastroesophageal reflux: Mild No difficulties with the barium tablet. Fluoroscopy time: 2.7 minutes. FL/FL barium swallow [id number] IMPRESSION: 1. Small shelf-like indentation at the pharyngeal esophageal junction consiste nt with a small esophageal web. This can be further evaluated with endoscopy. N ormal transit of the barium tablet in this area. 2. Mild esophageal dysmotility. Mild reflux visualized on the supine imaging. 3. Small esophageal hiatal hernia. 4. Mild penetration with thin liquids. No aspiration.
== END 2021-02-03 09:14 | disposition home or self-care (01) ==
PROVIDERS: PCP Internal Medicine; Visit Provider Internal Medicine
DX: R13.10 Dysphagia, unspecified (principal); K44.9 Diaphragmatic hernia without obstruction or gangrene
CPT/HCPCS: 74220

== ENCOUNTER → 2021-02-27 08:05 | Outpatient (BNVA) | payer MEDICARE, MEDICAID, SELFPAY | PROVIDERS: PCP Internal Medicine; Visit Provider Nurse Practitioner Psychiatric/Mental Health | DX: F31.64 Bipolar disorder, current episode mixed, severe, with psychotic features (principal); F60.3 Borderline personality disorder; F17.210 Nicotine dependence, cigarettes, uncomplicated; F40.10 Social phobia, unspecified; Z63.4 Disappearance and death of family member; F12.90 Cannabis use, unspecified, uncomplicated | CPT/HCPCS: 99214 ==

== ENCOUNTER → 2021-03-06 11:10 | Outpatient (BNVA) | payer MEDICARE, MEDICAID, SELFPAY | PROVIDERS: PCP Internal Medicine; Visit Provider Surgery | DX: Z20.822 Contact with and (suspected) exposure to COVID-19 (principal); R13.10 Dysphagia, unspecified | CPT/HCPCS: 87635 ==

== ENCOUNTER 2021-03-10 06:32 | Day surgery (SDC) | payer MEDICARE, MEDICAID, SELFPAY ==
[2021-03-07 07:54] VITALS: BMI 46.5
[2021-03-10 06:50] VITALS: BP 152/91; PULSE 85; RESP 18; TEMP 36.2; O2SAT 98
--- NOTE | 2021-03-10 06:59 | W.PM.OPSUD ---
Surgery/Procedure H&P Update DATE OF PROCEDURE: March 10, 2021 DATE H&P PERFORMED: 02/13/21 H&P UPDATE INFORMATION: I have reviewed H&P completed within last 30 days, I have examined patient prior to procedure and No changes to prior documentation PREOP DIAGNOSIS: Dysphagia PRIMARY INDICATION FOR PROCEDURE: The same PLANNED PROCEDURE: Operation Date: 03/10/21 07:30 Proposed Procedures p EGD 12742 R13.10(Not Applicable) - oJse Palomo MD
--- NOTE | 2021-03-10 07:25 | P.ANESASSM_ITS ---
Pre-Anesthetic Assessment Pre-Anesthetic Assessment: Height/Weight: Height 1.8 m Weight 151.5 kg Temp Pulse Resp BP Pulse Ox 97.2 F L 85 18 152/91 98 03/10/21 06:50 03/10/21 06:50 03/10/21 06:50 03/10/21 06:50 03/10/21 06:50 Preop Diagnosis: Dysphagia Proposed Procedure: Operation Date: 03/10/21 07:30 Proposed Procedures p EGD 94182 R13.10(Not Applicable) - Jose Palomo MD Was Beta Camryn taken within 24 hours: N/A Was Clonidine taken within 24 hours: N/A Last intake: Intake Last Liquid Date 03/09/21 Last Liquid Time 21:00 Last Solid Date 03/09/21 Last Solid Time 17:30 Social: Social History: Tobacco (1/2ppd) Exam: Pre-Anes Outpt Exam: alert, oriented x 3, clear to auscultation bilaterally and regular rate & rhythm Airway: Submandibular: WNL Cervical ROM: WNL MP: 2 History/ROS: No significant history except as noted Pulmonary: Pulmonary: Asthma, BRYS[place], Sleep apnea and SOB CV/HEM: CV/HEM: Murmur : : None reported Hepatic: Hepatic: None reported GI: GI: GERD Metabolic: Metabolic: Morbid obesity Musc/skel: Musc/skel: None reported Neuropsych: Neuropsych: Anxiety and Bipolar Anesthetic Plan: ASA status: 3 Anesthesia: Anesthesia Evaluation and MAC Risk of > 500 ml blood loss (7ml/kg in children): No PFSH Anesthesia PFSH: Medical History (Updated 02/28/21 @ 16:24 by Azeb Barreto) Aftercare following surgery of the genitourinary system Bereavement Unexpected loss of mother in October 2019 Bipolar disorder, current episode mixed, severe, with psychotic features Borderline personality disorder Chronic back pain Cigarette nicotine dependence H/O drainage of abscess Marijuana use, episodic Psychiatric care SOB (shortness of breath) Social phobia, unspecified Surgical History History of surgery on arm 2014- left arm, Nexplanon broke in arm and had to be surgically removed Status post bilateral salpingectomy 08/16/2019- laparoscopic bilateral fulguration salpingectomy and removal of Nexplanon implant on 08/16/[address] Nguyen at [facility] Family History Father Heart disease valve surgery Grandmother Diabetes paternal Social History Quit status (tobacco): considering quitting Second hand smoke exposure: Yes Alcohol intake: never Female Reproductive History: Date of last menstrual period: 08/06/19 Data Anesthesia Cardiac Studies: No Data to Display
[2021-03-10] MEDS: sodium chloride 0.9% 1,000 ML 30 ML IV (07:26)
[2021-03-10 07:45] VITALS: BP 157/84; PULSE 81; RESP 18; TEMP 36.1; O2SAT 95
[2021-03-10 08:00] VITALS: BP 112/97; PULSE 69; RESP 16; O2SAT 96
--- NOTE | 2021-03-10 15:32 | ANE.PACU2 ---
Inpatient post-anesthesia follow up: Airway intact: Yes Vital signs: Temperature 97 F Pulse Rate 69 Respiratory Rate 16 Blood Pressure 112/97 Pulse Oximetry 96 Oxygen Delivery Me thod Room Air Oxygen Flow Rate Fraction of Inspir ed Oxygen Hydration adequate: Yes Nausea and vomiting: No Pain level: 1 Mental status: Baseline
[2021-03-11 12:46] LABS: H. Pylori / CLO Test Negative
== END 2021-03-10 08:06 | disposition home or self-care (01) ==
PROVIDERS: PCP Internal Medicine; Visit Provider Surgery
PROC: 0DJ08ZZ Inspection of Upper Intestinal Tract, Via Natural or Artificial Opening Endoscopic (ICD-10-PCS; CPT 43235; principal; 2021-03-10 07:30)
DX: R13.10 Dysphagia, unspecified (principal); K21.00 Gastro-esophageal reflux disease with esophagitis, without bleeding; K29.70 Gastritis, unspecified, without bleeding; E66.01 Morbid (severe) obesity due to excess calories; Z68.42 Body mass index [BMI] 45.0-49.9, adult
CPT/HCPCS: 43239; 87077; J7030

== ENCOUNTER → 2021-03-28 07:16 | Outpatient (BNVA) | payer MEDICARE, MEDICAID, SELFPAY | PROVIDERS: PCP Internal Medicine; Visit Provider Nurse Practitioner Psychiatric/Mental Health | DX: F31.64 Bipolar disorder, current episode mixed, severe, with psychotic features (principal); F60.3 Borderline personality disorder; F40.10 Social phobia, unspecified; F17.210 Nicotine dependence, cigarettes, uncomplicated; Z63.4 Disappearance and death of family member; F12.90 Cannabis use, unspecified, uncomplicated | CPT/HCPCS: 99214 ==

== ENCOUNTER → 2021-04-17 09:22 | Outpatient (BNVA) | payer MEDICARE, MEDICAID, SELFPAY | PROVIDERS: PCP Internal Medicine; Referring Provider Pediatrics; Visit Provider Internal Medicine | DX: R73.03 Prediabetes (principal); E66.01 Morbid (severe) obesity due to excess calories; Z15.89 Genetic susceptibility to other disease; F17.200 Nicotine dependence, unspecified, uncomplicated; Z68.42 Body mass index [BMI] 45.0-49.9, adult | CPT/HCPCS: 36415; 83036; 99204 ==

== ENCOUNTER 2021-04-17 11:06 | Outpatient (CLI) | payer MEDICARE, MEDICAID, SELFPAY ==
[2021-04-17 11:53] LABS: Estmated Average Glucose 103; Hemoglobin A1C 5.2 % (4.0-6.0)
== END 2021-04-17 11:07 | disposition home or self-care (01) ==
LOC: LAB 11:07
PROVIDERS: PCP Pediatrics; Visit Provider Internal Medicine
DX: R73.03 Prediabetes (principal)
CPT/HCPCS: 36415; 83036

== ENCOUNTER → 2021-05-30 12:27 | Outpatient (BNVA) | payer MEDICARE, MEDICAID, SELFPAY | PROVIDERS: PCP Pediatrics; Visit Provider Nurse Practitioner Psychiatric/Mental Health | DX: F31.64 Bipolar disorder, current episode mixed, severe, with psychotic features (principal); F60.3 Borderline personality disorder; F17.210 Nicotine dependence, cigarettes, uncomplicated; F40.10 Social phobia, unspecified; Z63.4 Disappearance and death of family member; F12.90 Cannabis use, unspecified, uncomplicated | CPT/HCPCS: 99214 ==

== ENCOUNTER → 2021-06-19 10:05 | Outpatient (BNVA) | payer MEDICARE, MEDICAID, SELFPAY | PROVIDERS: PCP Pediatrics; Visit Provider Internal Medicine | DX: E66.01 Morbid (severe) obesity due to excess calories (principal); Z15.89 Genetic susceptibility to other disease; F17.200 Nicotine dependence, unspecified, uncomplicated; Z68.42 Body mass index [BMI] 45.0-49.9, adult | CPT/HCPCS: 99214 ==

== ENCOUNTER 2021-06-23 08:06 | Outpatient (CLI) | payer MEDICARE, MEDICAID, SELFPAY ==
[2021-06-23 09:27] LABS: Free T4 Free Thyroxine 0.97 ng/dL (0.82-1.77)
[2021-06-23 09:28] LABS: Cortisol Random 0.68 ug/dL (2.47-19.5)
== END 2021-06-23 08:07 | disposition home or self-care (01) ==
PROVIDERS: PCP Pediatrics; Visit Provider Internal Medicine
DX: E66.01 Morbid (severe) obesity due to excess calories (principal); Z15.89 Genetic susceptibility to other disease
CPT/HCPCS: 36415; 82533; 84439; 84443

== ENCOUNTER → 2021-07-09 07:53 | Outpatient (BNVA) | payer MEDICARE, MEDICAID, SELFPAY | PROVIDERS: PCP Pediatrics; Visit Provider Nurse Practitioner Psychiatric/Mental Health | DX: F31.64 Bipolar disorder, current episode mixed, severe, with psychotic features (principal); F60.3 Borderline personality disorder; F17.210 Nicotine dependence, cigarettes, uncomplicated; F40.10 Social phobia, unspecified; Z63.4 Disappearance and death of family member; F12.90 Cannabis use, unspecified, uncomplicated | CPT/HCPCS: 99214 ==

== ENCOUNTER → 2021-09-03 07:43 | Outpatient (BNVA) | payer MEDICARE, MEDICAID, OTHER, SELFPAY | PROVIDERS: PCP Pediatrics; Visit Provider Nurse Practitioner Psychiatric/Mental Health | DX: F31.64 Bipolar disorder, current episode mixed, severe, with psychotic features (principal); F60.3 Borderline personality disorder; F40.10 Social phobia, unspecified; F17.210 Nicotine dependence, cigarettes, uncomplicated; F12.90 Cannabis use, unspecified, uncomplicated; Z63.4 Disappearance and death of family member | CPT/HCPCS: 99214 ==

== ENCOUNTER 2021-10-01 14:12 | Emergency (ER) | payer MEDICARE, MEDICAID, SELFPAY ==
[2021-10-01 14:17] VITALS: BP 143/72; PULSE 71; RESP 20; TEMP 36.2; O2SAT 97; BMI 47.8
[2021-10-01 14:28] VITALS: BP 143/72; PULSE 71; RESP 18; O2SAT 97
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
--- NOTE | 2021-10-01 14:46 | XRR_ITS ---
PROCEDURE INFORMATION: Exam: XR Lumbosacral Spine Exam date and time: 10/01/2021 3:15 PM Age: 35 years old Clinical indication: Injury or trauma; Fall; Blunt trauma (contusions or hematomas); Additional info: Pain, injury TECHNIQUE: Imaging protocol: XR of the lumbosacral spine. Views: 2 or 3 views. COMPARISON: CT abdomen pelvis w con* [id number] 02/25/2019 4:09 PM FINDINGS: Bones/joints: Normal. No acute fracture. Normal alignment. Soft tissues: Unremarkable. XR/XR lumbar spine 2-3V* [id number] IMPRESSION: No acute lumbar spine bony abnormality.
--- NOTE | 2021-10-01 14:48 | ED_ITS ---
HPI - Fall General: Chief Complaint: Extremity Injury, Lower Stated Complaint: fell, right side pain Time Seen by Provider: 10/01/21 14:28 Source: patient Mode of arrival: ambulatory Limitations: no limitations History of Present Illness: Patient is a 35-year-old female presents to ED today for evaluation following a fall. Patient states just prior to arrival she slipped on a wet surface/floor in her home and states when she slipped her right foot got caught underneath a table causing her right foot and ankle pain. She states she then twisted to try to catch herself and injured her lower back and right hip area. She states she never directly fell to the ground and there was no direct injury or trauma to these areas. She denies any other complaints or injuries at this time. MD complaint: fall Onset (ago): hour(s) Fall from: standing Fall witnessed: no Place fall occurred: home Loss of consciousness: None Prolonged down time: no Symptoms prior to fall: none Context: tripped/slipped Location of injury: back Location of injury - extremities: Right: ankle and foot Associated symptoms-after fall: Reports no associated symptoms; Denies abdominal pain, chest pain, headache(s) or neck pain Review of Systems Eyes: Denies: change in vision Card: Denies: chest pain or palpitations Resp: Denies: dyspnea GI: Denies: abdominal pain Musc: Reports: back pain, extremity pain (R foot), extremity swelling (R foot) and joint pain (R hip, R ankle/foot); Denies: neck pain, joint redness or joint warmth Neuro: Denies: headache(s), numbness in extremities, weakness in extremities or sensory changes [facility] ED PFSH: Medical History Acid reflux Aftercare following surgery of the genitourinary system Bereavement Unexpected loss of mother in October 2019 Bipolar disorder, current episode mixed, severe, with psychotic features Borderline personality disorder Chronic back pain Cigarette nicotine dependence Gastritis H/O drainage of abscess Marijuana use, episodic Psychiatric care SOB (shortness of breath) Social phobia, unspecified Surgical History History of surgery on arm 2014- left arm, Nexplanon broke in arm and had to be surgically removed Status post bilateral salpingectomy 08/16/2019- laparoscopic bilateral fulguration salpingectomy and removal of Nexplanon implant on 08/16/[address] Nguyen at [facility] Family History Father Heart disease valve surgery Grandmother Diabetes paternal Social History Quit status (tobacco): considering quitting Second hand smoke exposure: Yes Alcohol intake: never Female Reproductive History: Date of last menstrual period: 08/06/19 Physical Exam Const: COMMON NORMALS: no acute distress, patient oriented x3, no limitations and alert GENERAL APPEARANCE: cooperative NUTRITIONAL APPEARANCE: obese morbidly obese ORIENTATION/CONSCIOUSNESS: Yes awake, Yes oriented to person, Yes oriented to place and Yes oriented to time HENMT: COMMON NORMALS: normocephalic and atraumatic HEAD & SCALP: normal to inspection, normocephalic and atraumatic Neck/C-Spine: COMMON NORMALS: full ROM CERVICAL SPINE: Yes cervical ROM normal, No pain with cervical ROM, No Cervical spine tenderness, No step off deformity and No Paracervical muscle tenderness Chest: COMMONS NORMALS: normal inspection of the chest and normal palpation of entire chest wall Resp: COMMON NORMALS: normal respiratory effort and clear to auscultation bilaterally AUSCULTATION: clear to auscultation bilaterally Cardio: COMMON NORMALS: regular rate and regular rhythm RATE: regular rate RHYTHM: regular rhythm Back/Pelvis: THORACIC SPINE/UPPER BACK: Yes normal to inspection, No thoracic spinal tenderness, No paraspinal muscle tenderness and No paraspinal muscle spasm LUMBAR SPINE/LOWER BACK: Yes pain with ROM, Yes lumbar spinal tenderness, Yes paraspinal muscle tenderness, No paraspinal muscle spasm and Yes straight leg raise negative bilaterally PELVIS: Yes buttocks normal SACROILIAC JOINTS: Yes SI joints normal Extremity: GENERAL: Yes normal exam except as noted RIGHT LOWER EXTREMITY: Yes hip joint (exam limited seconday to body habitus) Right hip: Yes inspection (no shortening/rotation noted) and Yes neurovascular exam (normal), Yes foot & digits (mild TTP throughout R ankle joint w/o swelling or deformity) Right ankle: Yes neurovascular exam (normal) and Yes foot & digits (TTP, swelling, and mild ecchymosis to dorsal forefoot) Right foot and digits: Yes neurovascular exam (normal) Neuro: EBENEZER COMA SCALE: document GCS findings Ebenezer coma scale eye opening: Spontaneous [place] coma scale verbal response: Orientated [place] coma scale motor response: Obey commands Ebenezer coma scale total score: 15 COMMON NORMALS: patient oriented x3, moves all extremities, no focal motor deficits and no sensory deficits noted SENSORIUM/ORIENTATION: Yes alert, Yes oriented to person, Yes oriented to place and Yes oriented to time Skin: COMMON NORMALS: no rashes or lesions noted GENERAL SKIN EXAM: no rashes or lesions noted TRAUMA: no lacerations or abrasions Course Vital Signs: Vital signs: Vital Signs Temperature 97.2 F L 10/01/21 14:17 Pulse Rate 71 10/01/21 14:28 Respiratory Rate 18 10/01/21 14:28 Blood Pressure 143/72 10/01/21 14:28 Pulse Oximetry 97 10/01/21 14:28 MDM - Fall Medical Decision Making XRs negative. She does have a little bony avulsion from her navicular on her XR foot however this was seen/present on previous ankle films. Recommend conservative treatment at home with ice, heat, OTC meds. Follow-up with PCP in 1 to 2 weeks for continued pain. Patient has a cane and a set of crutches she may use as needed at home. Lab Data Radiology Impressions Ankle X-Ray 10/01/21 14:46 IMPRESSION: No acute findings. Foot X-Ray 10/01/21 14:46 IMPRESSION: No acute findings. Hip/Pelvis X-Ray 10/01/21 14:46 IMPRESSION: No acute findings. Lumbar Spine X-Ray 10/01/21 14:46 IMPRESSION: No acute lumbar spine bony abnormality. Discharge Plan Discharge Patient Disposition: Home Clinical Impression: Fall from slipping Qualifiers: Encounter type: initial encounter Qualified Code(s): W01.0XXA - Fall on same level from slipping, tripping and stumbling without subsequent striking against object, initial encounter Contusion of foot Qualifiers: Encounter type: initial encounter Laterality: right Qualified Code(s): S90.31XA - Contusion of right foot, initial encounter Low back strain Qualifiers: Encounter type: initial encounter Qualified Code(s): S39.012A - Strain of muscle, fascia and tendon of lower back, initial encounter Condition: Stable Prescriptions: No Action cetirizine [Zyrtec] 10 mg tablet 10 mg PO DAILY 0RF multivitamin with minerals [Hair,Skin and Nails] Tablet 1 tab PO DAILY@21 0RF albuterol sulfate [Ventolin HFA] 90 mcg/actuation HFA aerosol inhaler 2 puff INHALATION Q6H PRN (Reason: Shortness Of Breath) 0RF albuterol sulfate 2.5 mg /3 mL (0.083 %) solution for nebulization 2.5 mg INHALATION QID PRN (Reason: asthma) 0RF acetaminophen [Tylenol] 325 mg tablet 650 mg PO TID PRN (Reason: pain) 0RF Russ 60 mg capsule 60 mg PO TID Qty: 270 3RF Rx Instructions: administer with meals topiramate [Topamax] 100 mg tablet 100 mg PO .bedtime Qty: 30 3RF Rx Instructions: Take one tablet at bedtime trazodone 100 mg tablet 100 mg PO .bedtime PRN (Reason: insomnia) Qty: 30 3RF Rx Instructions: Take one tablet at bedtime as needed for sleep haloperidol 1 mg tablet 1 mg PO BID Qty: 60 3RF Rx Instructions: Take one tablet in morning and at bedtime topiramate [Topamax] 50 mg tablet 50 mg PO .morning Qty: 30 3RF Rx Instructions: Take one tablet every morning ibuprofen 200 mg Tablet 400 mg PO PRN 0RF Hold Instructions: Resume on 03/14/21. Protonix 40 mg tablet,delayed release (DR/EC) 40 mg PO DAILY 30 Days Qty: 30 3RF Discharge Orders: Discharge ED (Routine); Ordered 10/01/21 Ordered By: Cecy Thomas Referrals: Sandra Christensen MD [Primary Care Provider] - Coding Level of Care Code ED Crown Perforator Operator for Chg Fwd Exam Comprehensive
== END 2021-10-01 16:18 | disposition home or self-care (01) ==
PROVIDERS: Emergency Provider Physician Assistant; PCP Pediatrics
DX: S90.31XA Contusion of right foot, initial encounter (principal); S39.012A Strain of muscle, fascia and tendon of lower back, initial encounter; W01.0XXA Fall on same level from slipping, tripping and stumbling without subsequent striking against object, initial encounter; F17.210 Nicotine dependence, cigarettes, uncomplicated
CPT/HCPCS: 72100; 73502; 73610; 73630; 99282

== ENCOUNTER → 2021-10-23 08:10 | Outpatient (BNVA) | payer MEDICARE, MEDICAID, SELFPAY | PROVIDERS: PCP Pediatrics; Visit Provider Internal Medicine | DX: Z15.89 Genetic susceptibility to other disease (principal); G62.9 Polyneuropathy, unspecified; E66.01 Morbid (severe) obesity due to excess calories; F17.210 Nicotine dependence, cigarettes, uncomplicated; Z68.42 Body mass index [BMI] 45.0-49.9, adult | CPT/HCPCS: 99214 ==

== ENCOUNTER → 2021-10-24 06:57 | Outpatient (BNVA) | payer MEDICARE, MEDICAID, SELFPAY | PROVIDERS: PCP Pediatrics; Visit Provider Nurse Practitioner Psychiatric/Mental Health | DX: F31.64 Bipolar disorder, current episode mixed, severe, with psychotic features (principal); F40.10 Social phobia, unspecified; F17.210 Nicotine dependence, cigarettes, uncomplicated; F60.3 Borderline personality disorder; Z63.4 Disappearance and death of family member; F12.90 Cannabis use, unspecified, uncomplicated | CPT/HCPCS: 99214 ==

== ENCOUNTER 2021-10-24 08:35 | Outpatient (CLI) | payer MEDICARE, MEDICAID, SELFPAY ==
[2021-10-24 09:32] LABS: Vitamin B12 456 pg/mL (232-1245)
[2021-10-27 14:41] LABS: Insulin ( Reference Lab Test) 20.3 uIU/mL
== END 2021-10-24 08:36 | disposition home or self-care (01) ==
PROVIDERS: PCP Family Medicine; Visit Provider Internal Medicine
DX: G62.9 Polyneuropathy, unspecified (principal); E66.01 Morbid (severe) obesity due to excess calories
CPT/HCPCS: 82607; 83525; 99214

== ENCOUNTER 2022-02-12 09:18 | Outpatient (CLI) | payer MEDICARE, MEDICAID, SELFPAY ==
[2022-02-12 10:47] LABS: Alanine Aminotransferase 19 U/L (0-33); Albumin Level 4.1 g/dL (3.5-5.2); Alkaline Phosphatase 92 U/L (35-105); Aspartate Amino Transferase 17 U/L (0-32); Blood Urea Nitrogen 10 mg/dL (6-20); Calcium 8.9 mg/dL (8.5-10.5); Carbon Dioxide 22 mmol/L (22-29); Chloride 105 mmol/L (98-107); Chol HDL Ratio 4.54 mg/dL (0.0-4.40); Cholesterol 168 mg/dL (0-200); Globulin 2.6 g/dL (1.3-4.6); Glomerular Filtration Rate 70.8 mL/min (90-130); Glucose 84 mg/dL (65-115); HDL Cholesterol 37 mg/dL (60-100); LDL Cholesterol Calculated 87 mg/dL (50-129); LDL HDL Ratio 2.35 RATIO (0.00-3.22); Osmolality Calculated 288 mOsm/kg (285-295); Sodium 140 mmol/L (136-145); Total Bilirubin 0.2 mg/dL (0.15-1.2); Total Protein 6.7 g/dL (6.6-8.7); Triglycerides 218 mg/dL (0-150)
[2022-02-12 10:48] LABS: Anion Gap 17.2 (5-19); Potassium 4.2 mmol/L (3.5-5.1)
[2022-02-12 11:27] LABS: Estmated Average Glucose 105; Hemoglobin A1C 5.3 % (4.0-6.0)
== END 2022-02-12 09:19 | disposition home or self-care (01) ==
LOC: LAB 09:21
PROVIDERS: PCP Family Medicine; Visit Provider Nurse Practitioner Psychiatric/Mental Health
DX: Z79.899 Other long term (current) drug therapy (principal); K21.9 Gastro-esophageal reflux disease without esophagitis; Z15.89 Genetic susceptibility to other disease; E66.01 Morbid (severe) obesity due to excess calories; Z68.42 Body mass index [BMI] 45.0-49.9, adult; F17.210 Nicotine dependence, cigarettes, uncomplicated
CPT/HCPCS: 36415; 80053; 80061; 83036; 99214

== ENCOUNTER → 2022-07-09 07:52 | Outpatient (BNVA) | payer MEDICARE, MEDICAID, SELFPAY | PROVIDERS: PCP Family Medicine; Visit Provider Internal Medicine | DX: E66.01 Morbid (severe) obesity due to excess calories (principal); G62.9 Polyneuropathy, unspecified; K21.9 Gastro-esophageal reflux disease without esophagitis; Z15.89 Genetic susceptibility to other disease; Z68.42 Body mass index [BMI] 45.0-49.9, adult | CPT/HCPCS: 99214 ==

== ENCOUNTER 2022-07-27 10:55 | Outpatient (CLI) | payer MEDICARE, MEDICAID, SELFPAY ==
--- NOTE | 2022-07-27 | US_ITS ---
WS: [id number] Complete ABDOMINAL ULTRASOUND HISTORY: ABD PAIN COMPARISON: None available. Technically difficult evaluation due to patient's body habitus and pain tolerance. Liver: 19.7 cm in length. Moderately enlarged liver. The entire liver is not well visualized. Common bile duct does appear mildly dilated measuring up to 10 mm. Portal Vein: Normal hepatopetal flow with monophasic waveform. Gallbladder: Poorly visualized. Pancreas: Partially visualized. CBD: 1.0 cm. Right kidney: 10.2 cm x 5.7 cm x 5.1 cm. No mass, cortical thickening or hydronephrosis. Left kidney: 10.6 cm x 6.2 cm x 6.2 cm. Normal kidney. Increased echogenicity with diffuse cortical thinning. Spleen: Normal size and echogenicity. Abdominal aorta and IVC are within normal limits. No ascites. US/US abdomen complete* [id number] IMPRESSION: 1. Technically this is a very difficult and limited evaluation of the abdomina l structures. 2. Recommend follow-up CT abdomen and pelvis with IV and oral contrast. 3. Common bile duct evaluation recommended. Common bile duct is mildly dilated . 4. Mild cortical thinning LEFT kidney with no obstruction. 5. Partially visualized liver.
== END 2022-07-27 10:56 | disposition home or self-care (01) ==
LOC: RAD 10:58
PROVIDERS: PCP Family Medicine; Visit Provider Family Medicine
DX: R10.9 Unspecified abdominal pain (principal)
CPT/HCPCS: 76700

== ENCOUNTER 2022-08-17 09:22 | Outpatient (CLI) | payer MEDICARE, MEDICAID, SELFPAY ==
--- NOTE | 2022-08-17 09:30 | CT_ITS ---
WS: [id number] CT ABDOMEN AND PELVIS WITH CONTRAST HISTORY: Upper abdominal pain for one year. TECHNIQUE: Imaging performed of the abdomen and pelvis with IV contrast. Single phase imaging of the abdomen. Coronal and sagittal reformats are submitted. All CT scans at [facility] use at [address] one of these dose optimization techniques: automated exposure control; mA and/or kV adjustment per patient size (includes targeted exams where dose is matched to clinical indication); or iterative re construction. IV CONTRAST: Omnipaque 350; 100 mL IV. Oral contrast: Yes. DLP: 1376.33 mGy.cm COMPARISON: 02/25/2019 Lower thorax: Lung bases are clear. Heart is normal size. No hiatal hernia. Liver/biliary system: Normal size with no intrahepatic dilatation. Gallbladder: Normal. No gallstones or wall thickening. No pericholecystic fluid. Pancreas: Normal size pancreas and pancreatic duct. No adjacent inflammation. Spleen: Normal size spleen. No mass or infarct. Adrenal glands: Normal. Right kidney: Normal size kidney. Nonobstructing 2 mm calcification mid kidney. Left kidney: Normal. Aorta: Normal. Lymphadenopathy: None. Free fluid: None. GI tract: Normally distended stomach. Normal small bowel. Normal appendix. No obstruction. No diverti cular disease. Abdominal wall: Unremarkable abdominal wall. No hernia. Pelvis: No free fluid or adenopathy within the pelvis. Normal uterus and ovaries. Bones: Unremarkable. CT/CT abdomen pelvis w con* [id number] IMPRESSION: 1. No acute abdominal or pelvic abnormalities are identified. 2. No renal obstruction. 3. Normal appendix.
[2022-08-17] MEDS: iohexol 350 mg/mL 500 mL Btl (per mL) PO (11:04)
[2022-08-17] MEDS: iohexol 350 mg/mL 500 mL Btl (per mL) IV (11:14)
== END 2022-08-17 09:23 | disposition home or self-care (01) ==
PROVIDERS: PCP Family Medicine; Visit Provider Family Medicine
DX: R10.10 Upper abdominal pain, unspecified (principal)
CPT/HCPCS: 74177; Q9967

== ENCOUNTER → 2022-09-28 09:16 | Outpatient (BNVA) | payer MEDICARE, MEDICAID, SELFPAY | PROVIDERS: PCP Family Medicine; Visit Provider Internal Medicine | DX: E66.01 Morbid (severe) obesity due to excess calories (principal); G62.9 Polyneuropathy, unspecified; K21.9 Gastro-esophageal reflux disease without esophagitis; Z15.89 Genetic susceptibility to other disease; Z68.42 Body mass index [BMI] 45.0-49.9, adult | CPT/HCPCS: 99214 ==

== ENCOUNTER 2022-10-03 20:15 | Emergency (ER) | payer MEDICARE, MEDICAID, SELFPAY ==
[2022-10-03 20:32] VITALS: BMI 41.8
[2022-10-03 20:36] VITALS: BP 127/74; PULSE 105; RESP 18; TEMP 36.6; O2SAT 97
--- NOTE | 2022-10-03 20:42 | XRR_ITS ---
PROCEDURE INFORMATION: Exam: XR Right Foot Exam date and time: 10/03/2022 9:00 PM Age: 36 years old Clinical indication: Pain; Ankle; Right; Additional info: Right ankle pain TECHNIQUE: Imaging protocol: Radiologic exam of the right foot. Views: 1 or 2 views. COMPARISON: No relevant prior studies available. FINDINGS: Bones/joints: Hallux valgus with a metatarsophalangeal joint angle of 24 degrees. Unfused osteophyte at the talonavicular joint on the lateral view. Soft tissues: Soft tissue swelling over the dorsum of the forefoot, nonspecific. XR/XR foot RT 2V [id number] IMPRESSION: 1. Negative for acute fracture dislocation. 2. Hallux valgus with a metatarsophalangeal joint angle of 24 degrees. 3. Unfused osteophyte at the talonavicular joint on the lateral view. 4. Soft tissue swelling over the dorsum of the forefoot, nonspecific.
--- NOTE | 2022-10-03 22:11 | ED_ITS ---
HPI - Extremity Problem General: Chief complaint: Extremity Injury, Lower Stated complaint: right foot pain History of Present Illness: Patient is a 36-year-old female comes to the ED with right foot pain. Pain started yesterday. Denies any injury or trauma. Patient says she was stre tching her foot and felt a pain around her midfoot that radiates to her lateral malleolus and into her Achilles tendon. She rates her pain currently 7 out of 10. Associated symptoms: Deny chest pain, fever(s) or rash Review of Systems Const: Denies: fever(s), chills or fatigue Eyes: Denies: change in vision or eye discomfort ENMT: Denies: throat pain, odynophagia, nasal discharge or nasal congestion Card: Denies: chest pain, palpitations, edema, swelling of feet/ankles, dyspnea on exertion or orthopnea Resp: Denies: dyspnea, productive cough or non-productive cough GI: Denies: abdominal pain, nausea, vomiting, diarrhea, constipation or hematochezia : Denies: flank pain, dysuria or hematuria Musc: Reports: extremity pain (Right foot) and limited range of motion (Right foot); Denies: neck pain, back pain or extremity swelling Skin/Breast: Denies: rash or new lesions Neuro: Denies: headache(s), numbness in extremities or weakness in extremities PFS ED PFSH: Medical History Acid reflux Aftercare following surgery of the genitourinary system Bereavement Unexpected loss of mother in Oct 31 2019 Bipolar disorder, current episode mixed, severe, with psychotic features Borderline personality disorder Chronic back pain Cigarette nicotine dependence Gastritis H/O drainage of abscess Marijuana use, episodic chronic back pain Psychiatric care SOB (shortness of breath) Social phobia, unspecified Surgical History History of surgery on arm 2015- left arm, Nexplanon broke in arm and had to be surgically removed Status post bilateral salpingectomy 08/16/2019- laparoscopic bilateral fulguration salpingectomy and removal of Nexplanon implant on 08/16/[address] Nguyen at [facility] Family History Father Heart disease valve surgery Grandmother Diabetes paternal Social History Smoking and tobacco status: current every day smoker cigarettes Packs smoked per day: 1 Years cigarettes smoked: 11 Quit status (tobacco): considering quitting Second hand smoke exposure: Yes Alcohol intake: never Female Reproductive History: Date of last menstrual period: 09/02/22 Physical Exam Const: COMMON NORMALS: no acute distress, patient oriented x3 and alert HENMT: COMMON NORMALS: normocephalic HEAD & SCALP: normocephalic MOUTH: Normal oral and palatal mucosa present THROAT: posterior oropharynx normal and uvula midline Neck/C-Spine: COMMON NORMALS: supple GENERAL: Yes normal visual inspection Resp: COMMON NORMALS: normal respiratory effort, No retractions, No use of accessory muscles and clear to auscultation bilaterally AUSCULTATION: clear to auscultation bilaterally Cardio: COMMON NORMALS: regular rate, regular rhythm, S1 normal heart sound present, S2 normal heart sound present, No gallops present (Cardio), No clicks present (Cardio), No murmurs present (Cardio) and Peripheral pulses 2+ throughout RATE: regular rate RHYTHM: regular rhythm HEART SOUNDS: S1 normal heart sound present and S2 normal heart sound present PERIPHERAL PULSES: Peripheral pulses 2+ throughout GI: COMMON NORMALS: Normal to inspection, nondistended, normoactive bowel sounds present, Soft to palpation, non-tender and no masses PALPATION: Yes Soft to palpation : COMMON NORMALS: Yes no CVA tenderness BLADDER/KIDNEY EXAM: Yes no CVA tenderness Back/Pelvis: COMMON NORMALS: no CVA tenderness Extremity: NARRATIVE EXTREMITY EXAM: Right foot patient has tenderness upon palpation of Achilles tendon and midfoot region. Rest of exam is benign. Neuro: COMMON NORMALS: patient oriented x3 SENSORIUM/ORIENTATION: Yes alert GAIT: Yes Normal gait present Skin: GENERAL SKIN EXAM: dry skin Course Vital Signs: Vital signs: Vital Signs Temperature 98 F 10/03/22 20:36 Pulse Rate 105 H 10/03/22 20:36 Respiratory Rate 18 10/03/22 20:36 Blood Pressure 127/74 10/03/22 20:36 Pulse Oximetry 97 10/03/22 20:36 Oxygen Delivery Me thod Room Air 10/03/22 20:36 MDM - Extremity (Nontraumatic) Medical Decision Making Patient is a 36-year-old female comes to the ED with right foot pain. Pain started yesterday. Denies any injury or trauma. Patient says she was stretching her foot and felt a pain around her midfoot that radiates to her lateral malleolus and into her Achilles tendon. She rates her pain currently 7 out of 10. Vitals are stable. Right foot patient has tenderness upon palpation of Achilles tendon and midfoot region. Rest of exam is benign. X-ray of your right foot shows negative for acute fracture or dislocation. There is noted osteophyte at the talonavicular joint and hallux valgus with medical tarsal phalangeal joint angle of 24 degrees. Patient was diagnosed with right foot pain and was stable for discharge home. I placed an order with case management for patient to be referred to podiatry for follow-up on foot pain. Return to ED precautions given. Patient understood and agreed with plan. Lab Data Radiology Impressions Foot X-Ray 10/03/22 20:42 IMPRESSION: 1. Negative for acute fracture dislocation. 2. Hallux valgus with a metatarsophalangeal joint angle of 24 degrees. 3. Unfused osteophyte at the talonavicular joint on the lateral view. 4. Soft tissue swelling over the dorsum of the forefoot, nonspecific. Discharge Plan Discharge Patient Disposition: Home Clinical Impression: Foot pain, right Condition: Stable Prescriptions: No Action multivitamin with minerals [Hair,Skin and Nails] Tablet 1 tab PO DAILY@21 albuterol sulfate [Ventolin HFA] 90 mcg/actuation HFA aerosol inhaler 2 puff INHALATION Q6H PRN (Reason: Shortness Of Breath) acetaminophen [Tylenol] 325 mg tablet 650 mg PO TID PRN (Reason: pain) haloperidol 1 mg tablet 1 mg PO BID Qty: 60 6RF Rx Instructions: Take one tablet in morning and at bedtime topiramate [Topamax] 50 mg tablet 50 mg PO .morning Qty: 30 6RF Rx Instructions: Take one tablet every morning topiramate [Topamax] 100 mg tablet 100 mg PO .bedtime Qty: 30 6RF Rx Instructions: Take one tablet at bedtime trazodone 100 mg tablet 100 mg PO .bedtime PRN (Reason: insomnia) Qty: 30 6RF Rx Instructions: Take one tablet at bedtime as needed for sleep Discharge Orders: Discharge ED (Routine); Ordered 10/03/22 Ordered By: Sony Amaro Referrals: Sandra Christensen, [Primary Care Provider] - Discharge Diet: Regular Discharge Activity: Limit activity as instructed and Use walker/crutches as instructed Activity Restrictions/Additional Instructions: Follow-up with medical provider as directed. Case management to be contacted in the next several days to set up an appoint with podiatry for follow-up on right foot pain. Use crutches and limit weightbearing on right foot. Rest, ice and elevate right foot. Take medications as prescribed. Return to the ER or your medical provider if condition worsens. Please read and understand discharge instructions. Thank you for choosing [facility] for your healthcare needs today. Please realize this is an emergency room and that we are providing you with a medical screening exam and this may not be complete and all inclusive of all the testing and or work up that you may need to determine your ailment or severity of your illness. It is very important that you follow up as instructed or that you return to the Emergency Department should you have concerns or if your condition changes or worsens in any way. Coding Level of Care Code ED Cement Storage Worker for Viji Mares
[2022-10-03] MEDS: HYDROcodone-acetaminophen 7.5-325 mg Tablet 1 TAB PO (22:16)
--- NOTE | 2022-10-05 09:13 | DCPLANNER ---
Addendum entered by Sindi Liz 10/06/22 11:22: Patient had a follow up appointment scheduled with ortho - patient did attend appointment. Original Note: air battle manager had message to schedule a follow up appointment for patient with podiatry. air battle manager sent patients information to the front office staff at podiatry. Patients information will be printed and reviewed. Clinic will call patient with appointment information.
== END 2022-10-03 22:30 | disposition home or self-care (01) ==
PROVIDERS: Emergency Provider Physician Assistant; PCP Family Medicine
DX: M79.671 Pain in right foot (principal); M20.11 Hallux valgus (acquired), right foot; F17.210 Nicotine dependence, cigarettes, uncomplicated
CPT/HCPCS: 73620; 99283

== ENCOUNTER 2022-10-05 16:17 | Outpatient (CLI) | payer MEDICARE, MEDICAID, SELFPAY | END 2022-10-05 16:18 | disposition home or self-care (01) | LOC: SPT 16:18 | PROVIDERS: PCP Family Medicine; Visit Provider Podiatrist Foot & Ankle Surgery | DX: Z46.89 Encounter for fitting and adjustment of other specified devices (principal); S92.251D Displaced fracture of navicular [scaphoid] of right foot, subsequent encounter for fracture with routine healing; M76.71 Peroneal tendinitis, right leg; X58.XXXD Exposure to other specified factors, subsequent encounter | CPT/HCPCS: 97760; 99203; L1902 ==

== ENCOUNTER → 2022-10-21 13:00 | Outpatient (BNVA) | payer MEDICARE, MEDICAID, SELFPAY | PROVIDERS: PCP Family Medicine; Visit Provider Podiatrist Foot & Ankle Surgery | DX: S92.251A Displaced fracture of navicular [scaphoid] of right foot, initial encounter for closed fracture (principal); X58.XXXA Exposure to other specified factors, initial encounter; M76.71 Peroneal tendinitis, right leg | CPT/HCPCS: 73630; 99213 ==

== ENCOUNTER → 2022-11-25 12:55 | Outpatient (BNVA) | payer MEDICARE, MEDICAID, SELFPAY | PROVIDERS: PCP Family Medicine; Visit Provider Podiatrist Foot & Ankle Surgery | DX: X58.XXXD Exposure to other specified factors, subsequent encounter (principal); S92.251D Displaced fracture of navicular [scaphoid] of right foot, subsequent encounter for fracture with routine healing; M76.71 Peroneal tendinitis, right leg | CPT/HCPCS: 99213 ==

== ENCOUNTER 2022-12-04 08:18 | Outpatient (CLI) | payer MEDICARE, MEDICAID, SELFPAY ==
[2022-12-04 09:20] LABS: Estmated Average Glucose 103; Hemoglobin A1C 5.2 % (4.0-6.0)
[2022-12-04 09:21] LABS: Alanine Aminotransferase 16 U/L (0-33); Alkaline Phosphatase 94 U/L (35-105); Aspartate Amino Transferase 13 U/L (0-32); Blood Urea Nitrogen 9 mg/dL (6-20); Calcium 8.9 mg/dL (8.5-10.5); Carbon Dioxide 20 mmol/L (22-29); Chloride 107 mmol/L (98-107); Chol HDL Ratio 4.39 mg/dL (0.0-4.40); Cholesterol 158 mg/dL (0-200); Globulin 2.5 g/dL (1.3-4.6); Glomerular Filtration Rate 62.7 mL/min (90-130); Glucose 84 mg/dL (65-115); HDL Cholesterol 36 mg/dL (60-100); LDL Cholesterol Calculated 74 mg/dL (50-129); LDL HDL Ratio 2.06 RATIO (0.00-3.22); Osmolality Calculated 284 mOsm/kg (285-295); Sodium 138 mmol/L (136-145); Total Bilirubin 0.2 mg/dL (0.15-1.2); Total Protein 6.5 g/dL (6.6-8.7); Triglycerides 241 mg/dL (0-150)
== END 2022-12-04 08:19 | disposition home or self-care (01) ==
LOC: RT 08:20 → LAB 08:23
PROVIDERS: PCP Family Medicine; Visit Provider Nurse Practitioner Psychiatric/Mental Health
DX: Z79.899 Other long term (current) drug therapy (principal); I49.8 Other specified cardiac arrhythmias
CPT/HCPCS: 36415; 80053; 80061; 83036; 93005

== ENCOUNTER 2023-12-09 11:53 | Outpatient (CLI) | payer MEDICARE, MEDICAID, OTHER, SELFPAY ==
[2023-12-09 12:33] LABS: Alanine Aminotransferase 15 U/L (0-33); Albumin Level 4.1 g/dL (3.5-5.2); Alkaline Phosphatase 104 U/L (35-105); Anion Gap 14.1 (5-19); Aspartate Amino Transferase 12 U/L (0-32); Blood Urea Nitrogen 10 mg/dL (6-20); Calcium 8.4 mg/dL (8.5-10.5); Carbon Dioxide 22 mmol/L (22-29); Chloride 111 mmol/L (98-107); Chol HDL Ratio 4.76 mg/dL (0.0-4.40); Cholesterol 176 mg/dL (0-200); Globulin 2.7 g/dL (1.3-4.6); Glomerular Filtration Rate 70.5 mL/min (90-130); Glucose 107 mg/dL (65-115); HDL Cholesterol 37 mg/dL (60-100); LDL Cholesterol Calculated 68 mg/dL (50-129); LDL HDL Ratio 1.84 RATIO (0.00-3.22); Osmolality Calculated 296 mOsm/kg (285-295); Potassium 4.1 mmol/L (3.5-5.1); Sodium 143 mmol/L (136-145); Total Bilirubin 0.2 mg/dL (0.15-1.2); Total Protein 6.8 g/dL (6.6-8.7); Triglycerides 353 mg/dL (0-150)
[2023-12-09 14:20] LABS: Estmated Average Glucose 103; Hemoglobin A1C 5.2 % (4.0-6.0)
== END 2023-12-09 11:54 | disposition home or self-care (01) ==
LOC: LAB 11:54
PROVIDERS: PCP Family Medicine; Visit Provider Nurse Practitioner Psychiatric/Mental Health
DX: Z79.899 Other long term (current) drug therapy (principal)
CPT/HCPCS: 36415; 80053; 80061; 83036

== ENCOUNTER → 2024-02-07 09:23 | Outpatient (BNVA) | payer MEDICARE, MEDICAID, SELFPAY | PROVIDERS: PCP Family Medicine; Referring Provider Family Medicine; Visit Provider Internal Medicine | DX: R68.89 Other general symptoms and signs (principal); E66.01 Morbid (severe) obesity due to excess calories; G62.9 Polyneuropathy, unspecified; Z15.89 Genetic susceptibility to other disease; K21.9 Gastro-esophageal reflux disease without esophagitis; Z68.42 Body mass index [BMI] 45.0-49.9, adult | CPT/HCPCS: 99214 ==

== ENCOUNTER 2024-09-25 08:48 | Outpatient (CLI) | payer MEDICARE, MEDICAID, SELFPAY ==
[2024-09-25 09:43] LABS: Estmated Average Glucose 100; Hemoglobin A1C 5.1 % (4.0-6.0)
[2024-09-25 09:45] LABS: Alanine Aminotransferase 16 U/L (0-33); Albumin Level 4.1 g/dL (3.5-5.2); Alkaline Phosphatase 101 U/L (35-105); Anion Gap 13.9 (5-19); Aspartate Amino Transferase 13 U/L (0-32); Blood Urea Nitrogen 8 mg/dL (6-20); Calcium 9.1 mg/dL (8.5-10.5); Carbon Dioxide 22 mmol/L (22-29); Chloride 107 mmol/L (98-107); Chol HDL Ratio 5.55 mg/dL (0.0-4.40); Cholesterol 183 mg/dL (0-200); Globulin 2.5 g/dL (1.3-4.6); Glomerular Filtration Rate 62.1 mL/min (90-130); Glucose 97 mg/dL (65-115); HDL Cholesterol 33 mg/dL (60-100); LDL Cholesterol Calculated 91 mg/dL (50-129); LDL HDL Ratio 2.76 RATIO (0.00-3.22); Osmolality Calculated 286 mOsm/kg (285-295); Potassium 3.9 mmol/L (3.5-5.1); Sodium 139 mmol/L (136-145); Total Bilirubin 0.2 mg/dL (0.15-1.2); Total Protein 6.6 g/dL (6.6-8.7); Triglycerides 297 mg/dL (0-150)
== END 2024-09-25 08:49 | disposition home or self-care (01) ==
LOC: LAB 08:50
PROVIDERS: PCP Family Medicine; Visit Provider Nurse Practitioner Psychiatric/Mental Health
DX: Z79.899 Other long term (current) drug therapy (principal)
CPT/HCPCS: 36415; 80053; 80061; 83036

== ENCOUNTER → 2024-10-02 10:24 | Outpatient (BNVA) | payer MEDICARE, MEDICAID, SELFPAY | PROVIDERS: PCP Family Medicine; Visit Provider Internal Medicine | DX: E66.01 Morbid (severe) obesity due to excess calories (principal); G62.9 Polyneuropathy, unspecified; Z15.89 Genetic susceptibility to other disease; K21.9 Gastro-esophageal reflux disease without esophagitis | CPT/HCPCS: 99214 ==

== ENCOUNTER 2025-01-29 09:38 | Outpatient (CLI) | payer MEDICARE, MEDICAID, SELFPAY ==
--- NOTE | 2025-01-29 09:52 | XRR_ITS ---
PROCEDURE INFORMATION: Exam: XR Right Knee Exam date and time: 01/29/2025 10:06 AM Age: 39 years old Clinical indication: Pain; Knee; Right; Additional info: Pain in right knee TECHNIQUE: Imaging protocol: Radiologic exam of the right knee. Views: 3 views. COMPARISON: CR XR knee RT 3V* [id number] 07/29/2019 1:26 PM FINDINGS: 3 films. Bones/joints: Normal. Soft tissues: Normal. XR/XR knee RT 3V* [id number] IMPRESSION: No acute findings.
== END 2025-01-29 09:39 | disposition home or self-care (01) ==
PROVIDERS: PCP Family Medicine; Visit Provider Family Medicine
DX: M25.561 Pain in right knee (principal)
CPT/HCPCS: 73562

== ENCOUNTER 2025-02-13 13:41 | Outpatient (CLI) | payer MEDICARE, MEDICAID, SELFPAY ==
--- NOTE | 2025-02-13 13:45 | MR_ITS ---
WS: [id number] MRI RIGHT KNEE HISTORY: PAIN IN R KNEE COMPARISON: 01/11/2009 Anterior cruciate ligament: Intact. Posterior cruciate ligament: Intact. Medial collateral ligament: Intact. Posterior lateral corner structures: Intact. Medial menisci: Intact. Normal signal, size and shape. Lateral meniscus: Intact. Normal signal, size and shape. Extensor mechanism: Distal quadriceps tendon and patellar tendons are intact. Fluid and soft tissue: No significant suprapatellar joint effusion. No Brown's cyst. Osseous and articular structures: Patellofemoral compartment: Very mild narrowing of the lateral patellofemoral joint space. Focal chondromalacia involving the lateral patellar facet. Minimal loss of cartilage. Very subtle marrow edema along the inferior lateral patellar facet. There is a tiny subchondral cyst at the patellar eminence. Medial compartment: Mild narrowing of the medial compartment has progressed since 2008. No marrow edema. Lateral compartment: Very mild narrowing of the lateral compartment. Minimal chondromalacia. MR/MR knee RT wo con* [id number] IMPRESSION: 1. Mild narrowing of the lateral patellofemoral joint space with focal chondro malacia involving the lateral patellar facet. 2. Very subtle marrow edema in the lateral inferior patellar facet and a subch ondral cyst at the patellar eminence. 3. Very mild narrowing of the medial and lateral compartments has progressed s raman the prior study from 2008. 4. No meniscal tear. 5. No ACL tear.
--- NOTE | 2025-02-13 14:02 | MR_ITS ---
WS: [id number] MRI BRAIN WITHOUT CONTRAST HISTORY: MIGRAINES COMPARISON: None available. TECHNIQUE: Diffusion imaging, multiplanar T1, T2 and FLAIR imaging obtained. No evidence for acute infarct or hemorrhage. Lazaro-white matter differentiation is normal. Normal hippocampal formations. No remote or acute infarcts are volume loss. Ventricles and extra-axial spaces are normal. No inferior displacement of cerebellar tonsils. The sella turcica and pituitary gland are unremarkable. Dural venous sinuses and g[place] of Verma demonstrate no abnormality on this unenhanced studies. Paranasal sinuses: Mucous retention cyst in the LEFT maxillary sinus. Mastoid air cells: Normal. Calvarium and scalp: Intact. MR/MR head wo con* [id number] IMPRESSION: 1. Normal diffusion imaging. No acute infarct. 2. Normal hippocampal formations. 3. No prior infarcts or small vessel disease.
== END 2025-02-13 13:42 | disposition home or self-care (01) ==
LOC: RAD 13:42
PROVIDERS: PCP Family Medicine; Visit Provider Family Medicine
DX: M25.561 Pain in right knee (principal); G43.909 Migraine, unspecified, not intractable, without status migrainosus; M22.41 Chondromalacia patellae, right knee; M85.871 Other specified disorders of bone density and structure, right ankle and foot; M25.861 Other specified joint disorders, right knee
CPT/HCPCS: 70551; 73721

== ENCOUNTER 2025-02-26 10:25 | Outpatient (CLI) | payer MEDICARE, MEDICAID, SELFPAY ==
--- NOTE | 2025-02-26 10:29 | MM_ITS ---
WS: [id number] DIAGNOSTIC BILATERAL DIGITAL BREAST TOMOSYNTHESIS MAMMOGRAPHY WITH CAD LEFT breast ultrasound, limited HISTORY: PAIN OF L BREAST COMPARISON: 12/01/2018 TECHNIQUE: Bilateral craniocaudad, mediolateral oblique, and mediolateral views are submitted with tomosynthesis and SM. Compression LEFT CC and MLO. Computer aided detection utilized. Breast composition: There are scattered areas of fibroglandular density. Markers are placed along the anterior superior LEFT breast in the area of pain and the new mass. No underlying mass or nodule identified in these areas. There is a normal appearance of the soft tissues. No skin thickening. No nipple retraction. No architectural distortion. RIGHT breast is negative. LEFT breast ultrasound, limited. Ultrasound is directed over the LEFT breast in the areas indicated by the patient. Ultrasound is performed at 2 and 3:00. There is no mass or shadowing. No skin thickening. MM/MM diag BI tomosynthesis [id number] IMPRESSION: BI-RADS: 2 - Benign. FOLLOW UP: 1 Year Follow-up No ultrasound abnormality noted in the LEFT breast in the areas indicated by th e patient. Return to annual screening mammography.
== END 2025-02-26 10:26 | disposition home or self-care (01) ==
LOC: RAD 10:25
PROVIDERS: PCP Family Medicine; Visit Provider Nurse Practitioner Family
DX: N64.4 Mastodynia (principal); R92.323 Mammographic fibroglandular density, bilateral breasts
CPT/HCPCS: 76642; 77062; G0279

== ENCOUNTER 2025-04-16 07:54 | Emergency (ER) | payer MEDICARE, MEDICAID, SELFPAY ==
[2025-04-16 07:59] VITALS: BP 163/109; PULSE 95; RESP 16; TEMP 37.1; BMI 45.1
--- NOTE | 2025-04-16 08:00 | XR_ITS ---
WS: [id number] Exam: XR foot RT min 3V* [id number] Date/Time of Exam: 04/16/2025 8:00 AM Reason For Exam: injury No acute fracture. The joints are maintained. Normal soft tissues. XR/XR foot RT min 3V* [id number] IMPRESSION: 1. Normal RIGHT foot.
--- NOTE | 2025-04-16 08:00 | XR_ITS ---
WS: [id number] Exam: XR ankle RT min 3V* [id number] Date/Time of Exam: 04/16/2025 8:00 AM Reason For Exam: injury No acute fracture. The ankle mortise is well-maintained. Normal soft tissues. XR/XR ankle RT min 3V* [id number] IMPRESSION: 1. No acute fracture.
--- NOTE | 2025-04-16 08:00 | XR_ITS ---
WS: [email or web address] Exam: XR chest 1V portable [id number] Date/Time of Exam: 04/16/2025 8:00 AM Reason For Exam: sob Comparison 02/25/2019. Lungs are clear. Normal heart size. Bony structures are intact. The mediastinum is normal in contour. No pleural effusion. XR/XR chest 1V portable [id number] IMPRESSION: 1. Normal chest.
--- OUTSIDE RECORDS SUMMARY | 2025-04-16 08:01 | XMS_ITS | Clinical Summary ---
Author Organization [facility] Address [address] [place] [address] Phone Care Team Providers Care Garage Manager Name Role Phone Non-Staff, Physician Primary Care Provider Unava ilable Allergies Active Allergy Reactions Criticality Noted Date Comments Bupropion Other (See Comments) 09/10/2020 Blurry vision Procaine Other (See Comments) 09/10/2020 Is not effective for her Medications haloperidoL (HALDOL) 10 mg tablet Take 10 mg by mouth 1 time daily as needed for Delirium. 09/10/2020 Active ondansetron (ZOFRAN) 4 mg Tablet Take 1 Tablet (4 mg) by mouth every 8 hours as needed for Nausea/Emesi s. 4 Tablet 0 10/17/2020 Active LORazepam (ATIVAN) 0.5 mg tablet Take 0.5 mg by mouth 1 time daily as needed for Anxiety. 09/10/2020 Active traZODone (DESYREL) 50 mg tablet Take 50 mg by mouth nightly as needed for Insomnia. 09/10/2020 Active ibuprofen (MOTRIN) 200 mg tablet Take 200 mg by mouth every 6 hours as needed for Pain, Mild. 09/10/2020 Active topiramate (TOPAMAX) 50 mg tablet Take 50 mg by mouth daily at bedtime. 09/10/2020 Active Active Problems Problem Noted Date Diagnosed Date Insertion of implantable subdermal contraceptive 06/24/2016 Tobacco use 05/21/2016 Encounter for counseling regarding contraception 05/21/2016 Morbid obesity with BMI of 45.0-49.9, adult 06/2015 Family History Medical History Relation Name Comments Heart Disease Father Kidney Disease Father Bipolar Disorder Mother COPD Mother Heart Failure Mother Bipolar Disorder Sister COPD Sister Crohn's Disease Sister Relation Name Status Comments Father Alive Mother Sister Alive Social History Tobacco Use Types Packs/Day Years Used Date Smoking Tobacco: Every Day Cigarettes Smokeless Tobacco: Never Alcohol Use Standard Drinks/Week Comments Yes 0 (1 standard drink = 0.6 oz pur e alcohol) Comments Unknown Sex and Gender Information Value Date Recorded Sex Assigned at Not on file 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 Gender Identity Not on file Sexual Orientation Not on file Last Filed Vital Signs Vital Sign Reading Time Taken Comments Blood Pressure 136/78 03/24/2021 10:10 AM CDT Pulse 86 10/17/2020 5:50 PM CDT Temperature 36.3 C (97.3 F) 03/24/2021 9:03 AM CDT Respiratory Rate 18 03/24/2021 10:10 AM CDT Oxygen Saturation 98% 03/24/2021 10:10 AM CDT Inhaled Oxygen Concentration - - Weight 155.6 kg (343 lb) 03/24/2021 9:03 AM CDT Height 177.8 cm (5' 10 ) 03/24/2021 9:03 AM CDT Body Mass Index 49.22 03/24/2021 9:03 AM CDT Plan of Treatment Health Maintenance Due Date Last Done Comments Pre-Diabetes and Diabetes Screening 1985 DTAP/TDAP/TD VACCINES (1 - Tdap) 2004 HEPATITIS B VACCINES (1 of 3 - 19+ 3-dose series) 2004 HPV/Cotest (21-29) 2006 HPV VACCINES (1 - 3-dose SCD M series) 2012 HPV/Cotest (30-65) 12/25/2015 CERVICAL CANCER SCREENING 11/28/2022 PAP SMEAR 11/28/2022 11/29/2019, 0609/2018, 12/03/2014, Additional history exists INFLUENZA VACCINE (#1) 2025 09/10/2020 Insurance [place]ICAID [place] MED[place] PART A AND B Care Teams Garage Manager Relationship Specialty Start Date End Date Non-Staff, Physician NO ADDRESS ON FILE PCP - General 08/06/21
--- OUTSIDE RECORDS SUMMARY | 2025-04-16 08:01 | XMS_ITS | Clinical Summary ---
Author Organization [facility] Address [address] [place] [address] Phone Care Team Providers Care Tape Recording Machine Operator Name Role Phone Tala Ramirez MD Primary Care Provider Allergies Active Allergy Reactions Criticality Noted Date Comments Bupropion Other (See Comments) 09/10/2020 Blurry vision Procaine Other (See Comments) 09/10/2020 Is not effective for her Medications albuterol (PROAIR HFA) 90 mcg/Actuation Inhalation HFAA Take 1 Puff by inhalation one time only. Active ibuprofen (MOTRIN) 200 mg tablet Take 200 mg by mouth every 6 hours as needed for Pain, Mild. Active topiramate (TOPAMAX) 50 mg tablet Take 50 mg by mouth daily at bedtime. Active traZODone (DESYREL) 50 mg tablet Take 50 mg by mouth nightly as needed for Insomnia. Active haloperidoL (HALDOL) 10 mg tablet Take 10 mg by mouth 1 time daily as needed for Delirium. Active LORazepam (ATIVAN) 0.5 mg tablet Take 0.5 mg by mouth 1 time daily as needed for Anxiety. Active ondansetron (Zofran) 4 mg Tablet Take 1 Tablet (4 mg) by mouth every 8 hours as needed for Nausea/Emesis. 4 Tablet Active Active Problems Problem Noted Date Diagnosed Date Insertion of implantable subdermal contraceptive 06/24/2016 Morbid obesity with BMI of 45.0-49.9, adult 12/0 06/2015 Tobacco use 05/21/2016 Encounter for counseling regarding contraception 05/21/2016 Family History Medical History Relation Name Comments Heart Disease Father Kidney Disease Father Bipolar Disorder Mother COPD Mother Heart Failure Mother Bipolar Disorder Sister COPD Sister Crohn's Disease Sister Relation Name Status Comments Father Alive Mother Sister Alive Social History Tobacco Use Types Packs/Day Years Used Date Smoking Tobacco: Every Day Cigarettes Smokeless Tobacco: Never Tobacco Cessation:Counseling Given: Yes Alcohol Use Standard Drinks/Week Comments Yes 0 (1 standard drink = 0.6 oz pur e alcohol) rarely Comments No Sex and Gender Information Value Date Recorded Sex Assigned at Not on file 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:59 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 Gender Identity Not on file Sexual Orientation Not on file Last Filed Vital Signs Vital Sign Reading Time Taken Comments Blood Pressure 121/68 10/17/2020 7:05 PM CDT Pulse 86 10/17/2020 5:50 PM CDT Temperature 36.6 C (97.8 F) 10/17/2020 5:50 PM CDT Respiratory Rate 24 10/17/2020 5:50 PM CDT Oxygen Saturation 97% 10/17/2020 7:05 PM CDT Inhaled Oxygen Concentration - - Weight 144.2 kg (318 lb) 10/17/2020 5:50 PM CDT Height 177.8 cm (5' 10 ) 10/17/2020 5:50 PM CDT Body Mass Index 45.63 10/17/2020 5:50 PM CDT Plan of Treatment Health Maintenance Due Date Last Done Comments Pre-Diabetes and Diabetes Screening 1985 DTAP/TDAP/TD VACCINES (1 - Tdap) 2004 HEPATITIS B VACCINES (1 of 3 - 19+ 3-dose series) 11/2004 Traditional Medicare (ACO) Annual Wellness Visit 12/24 HPV/Cotest (21-29) 2006 HPV VACCINES (1 - 3-dose SCDM series) 2012 CERVICAL CANCER SCREENING 12/25/2015 HPV/Cotest (30-65) 12/25/2015 PAP SMEAR 12/25/2015 INFLUENZA VACCINE (#1) 2025 09/10/2020 Insurance MEDICARE PART A AND B MEDICAID [place] Care Teams Tape Recording Machine Operator Relationship Specialty Start Date End Date Tala Ramirez MD [address] [address] PCP - General Family Practice 09/10/20
--- NOTE | 2025-04-16 08:02 | ED_ITS ---
HPI - Extremity Injury (Lower) General: Chief Complaint: Extremity Problem,Nontraumatic Stated Complaint: SOB, pain in rt foot Time Seen by Provider: 04/16/25 07:57 Source: patient Mode of arrival: ambulatory Limitations: no limitations History of Present Illness: 39-year-old female states she has had a right foot fracture in the past. States she is walking and felt the crunch in her right foot and had immediate severe pain states she has not been able to ambulate since then. This happened this morning. States pain is currently a 9 out of 10 and in the middle of her foot. She states it does radiate to her ankle. Patient states she has some slight dyspnea but states she gets short of breath when she gets severe pain she denies any chest pain or cough or fever Related Data Home Medications ?Medication ?Instructions ?Recorded ?Confirmed acetaminophen 325 mg tablet 650 mg PO TID PRN pain 01/0703/20/25 (Tylenol) albuterol sulfate 90 mcg/actuation 2 puff inhalation Q 6H PRN 07/14/19 03/20/25 aerosol inhaler (Ventolin HFA) Shortness Of Breath Previous Rx's ?Medication ?Instructions ?Recorded deutetrabenazine 6 mg tablet 6 mg PO BID #60 tabs 02/21 0 (Austedo) lurasidone 20 mg tablet 20 mg PO .7 pm #30 tabs 02/21 0 topiramate 100 mg tablet (Topamax) 100 mg PO BID #60 t abs 03/20/25 trazodone 100 mg tablet 100 mg PO .bedtime PRN insom madelin 03/20/25 #30 tabs hydrocodone 5 mg-acetaminophen 325 1 tab PO Q6H PRN pa in #14 tabs 04/16/25 mg tablet naproxen 500 mg tablet (Naprosyn) 500 mg PO BID PRN pa in #20 tabs 04/16/25 Allergies Allergy/AdvReac Type Severity Reaction Status Date / Time bupropion AdvReac Intermediate Dizziness Verified 03/20/25 08:05 and unsteady gait procaine AdvReac Mild Unknown Verified 03/20/25 08:05 Review of Systems Musc: Reports: extremity pain PFSH ED PFSH: Medical History Tardive dyskinesia Gastritis Acid reflux Psychiatric care Marijuana use, episodic chronic back pain Bereavement Unexpected loss of mother in Oct 31 2019 SOB (shortness of breath) H/O drainage of abscess Aftercare following surgery of the genitourinary system Bipolar disorder, current episode mixed, severe, with psychotic features Cigarette nicotine dependence Borderline personality disorder Social phobia, unspecified Chronic back pain Surgical History History of surgery on arm 2015- left arm, Nexplanon broke in arm and had to be surgically removed Status post bilateral salpingectomy 08/16/2019- laparoscopic bilateral fulguration salpingectomy and removal of Nexplanon implant on 08/16/[address] Nguyen at [facility] Family History Father Heart disease valve surgery Grandmother Diabetes paternal Social History Smoking and tobacco/nicotine status: current every day tobacco/nicotine user cigarettes Packs smoked per day: 1 Years cigarettes smoked: 11 Quit status (tobacco/nicotine): considering quitting Second hand smoke exposure: Yes Alcohol intake: never Substance/Drug Use: never Physical Exam Const: COMMON NORMALS: no acute distress, patient oriented x3 and healthy appearing HENMT: COMMON NORMALS: normocephalic and atraumatic HEAD & SCALP: normocephalic and atraumatic Neck/C-Spine: COMMON NORMALS: full ROM and supple Chest: COMMONS NORMALS: normal inspection of the chest Resp: COMMON NORMALS: normal respiratory effort, No retractions, No use of accessory muscles and clear to auscultation bilaterally AUSCULTATION: clear to auscultation bilaterally Cardio: COMMON NORMALS: regular rate, regular rhythm and No murmurs present (Cardio) RATE: regular rate RHYTHM: regular rhythm Extremity: COMMON NORMALS: full ROM NARRATIVE EXTREMITY EXAM: Tenderness over mid right foot no obvious deformity Neuro: COMMON NORMALS: patient oriented x3, moves all extremities and no focal motor deficits Psych: COMMON NORMALS: mental status grossly normal, Normal thought process present and cooperative THOUGHT PROCESS: Normal thought process present Skin: COMMON NORMALS: no rashes or lesions noted and no wounds GENERAL SKIN EXAM: no rashes or lesions noted Course Vital Signs: Vital signs: Vital Signs Temperature 98.7 F 04/16/25 07:59 Pulse Rate 95 04/16/25 07:59 Respiratory Rate 20 H 04/16/25 08:09 Blood Pressure 163/109 04/16/25 07:59 Pulse Oximetry 98 04/16/25 08:09 MDM - Extremity Injury (Lower) Medical Decision Making Patient presents here with right foot pain. Louie here showed no signs of fracture no signs of Achilles tendon tear. I did review her x-ray showed no acute abnormalities. Chest x-ray is normal as well EKG here shows normal sinus rhythm heart rate [address] or T wave normalities QRS 94 QTc 404. Her dyspnea is likely due to her pain she has been improvement here after I gave her morphine. Due to her pain we will place her in a splint she is to be nonweightbearing we will prescribe her Naprosyn and hydrocodone for home we will refer her to podiatry did go over this with her she understands agrees to plan Medical Records I reviewed the patient's medical records. Lab Data Radiology Impressions Ankle X-Ray 04/16/25 08:00 IMPRESSION: 1. No acute fracture. Chest X-Ray 04/16/25 08:00 IMPRESSION: 1. Normal chest. Foot X-Ray 04/16/25 08:00 IMPRESSION: 1. Normal RIGHT foot. All radiology interpretation(s) finalized by discharge EKG Data EKG 1: I personally reviewed and interpreted this EKG as follows: EKG interpretation date: 04/16/25 EKG interpretation time: 08:04 Interpretation: nsr hr [address] or t wave abnormalities qrs 94 qtc 404 Discharge Plan Discharge Patient Disposition: Home Clinical Impression: Injury of foot, right Condition: Stable Prescriptions: New hydrocodone-acetaminophen 5-325 mg tablet 1 tab PO Q6H PRN (Reason: pain) Qty: 14 0RF naproxen [Naprosyn] 500 mg tablet 500 mg PO BID PRN (Reason: pain) Qty: 20 0RF No Action albuterol sulfate [Ventolin HFA] 90 mcg/actuation HFA aerosol inhaler 2 puff INHALATION Q6H PRN (Reason: Shortness Of Breath) acetaminophen [Tylenol] 325 mg tablet 650 mg PO TID PRN (Reason: pain) lurasidone 20 mg tablet 20 mg PO .7 pm Qty: 30 1RF Rx Instructions: Take one tablet at 7 pm; must administer with food (at least 350 calories) Austedo 6 mg tablet 6 mg PO BID Qty: 60 3RF Rx Instructions: Take one tablet twice per day topiramate [Topamax] 100 mg tablet 100 mg PO BID Qty: 60 4RF Rx Instructions: Take one tablet every morning and at bedtime trazodone 100 mg tablet 100 mg PO .bedtime PRN (Reason: insomnia) Qty: 30 6RF Rx Instructions: Take one tablet at bedtime as needed for sleep Discharge Orders: Discharge ED (Routine); Ordered 04/16/25 Ordered By: Rosalina Wang Referrals: Wilver Dawson DPM [Physician, Podiatry] - 4-7 days Sandra Christensen DO [Primary Care Provider, COMPUTER SYSTEM VALIDATION SPECIALIST] Discharge Diet: Advance as tolerated Discharge Activity: Resume usual activity Patient Instructions: Foot Sprain (ED) Print Language: Frisian Coding Level of Care Code ED Mangle Operator Garments for Viji Mares
--- NOTE | 2025-04-16 08:04 | ECG_ITS ---
[facility] [employer] Test Date: 2025-04-16 Pat Name: Karo Snow Department: Room: Gender: Female Rn Cardiac Cath: : 1985 Requested By: Rosalina Wang Order Number: [id number] Reading MD: Measurements Intervals [place] Rate: 90 P: 42 NH: 159 QRS: 8 QRSD: 94 T: 47 QT: 357 QTc: 437 Interpretive Statements SINUS RHYTHM INDETERMINATE AXIS POSSIBLE ANTERIOR MYOCARDIAL INFARCTION , PROBABLY OLD [30 ms Q WAVE IN V3/V4, OR R < 0.2 mV IN V4] No previous ECG available for comparison [email or web address]
[2025-04-16 08:09] VITALS: RESP 20; O2SAT 98
[2025-04-16] MEDS: morphine 4 mg/mL SDV 1 mL IM (08:09)
== END 2025-04-16 08:37 | disposition home or self-care (01) ==
PROVIDERS: Emergency Provider Emergency Medicine; PCP Family Medicine
DX: S99.921A Unspecified injury of right foot, initial encounter (principal); X58.XXXA Exposure to other specified factors, initial encounter; F17.210 Nicotine dependence, cigarettes, uncomplicated
CPT/HCPCS: 71045; 73610; 73630; 93005; 96372; 99284; J2270

== ENCOUNTER 2025-04-17 08:55 | Emergency (ER) | payer MEDICARE, MEDICAID, SELFPAY ==
[2025-04-17 09:11] VITALS: BP 141/106; PULSE 92; RESP 18; TEMP 36.8; O2SAT 96; BMI 45.0
--- OUTSIDE RECORDS SUMMARY | 2025-04-17 09:21 | XMS_ITS | Clinical Summary ---
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
--- OUTSIDE RECORDS SUMMARY | 2025-04-17 09:21 | XMS_ITS | Clinical Summary ---
Author Organization [facility] Address [address] [place] [address] Phone Care Team Providers Care Ergonomics Technician Name Role Phone Tala Ramirez MD Primary [...] on file 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:59 AM HAND ENDBAND CUTTER Gender Identity Not on file Sexual Orientation [...] Insurance MEDICARE PART A AND B MEDICAID [place] Care Teams Ergonomics Technician Relationship Specialty Start Date End Date Tala Ramirez MD [address] [address] PCP - General Family Practice 09/10/20
--- NOTE | 2025-04-17 09:41 | W.ED.EXTPRO ---
HPI - Extremity Problem General: Chief complaint: Extremity Injury, Lower Stated complaint: Right foot pain Time Seen by Provider: 04/17/25 09:13 History of Present Illness: 39-year-old female seen in the emergency room with complaints of right ankle pain. She was seen yesterday for a inversion type ankle injury reports feeling a popping sensation x-ray was normal. She was discharged home with hydrocodone and referred to podiatry she returns today she has complaint of continued ankle pain. Related Data Home Medications ?Medication ?Instructions ?Recorded ?Confirmed acetaminophen 325 mg tablet 650 mg PO TID PRN pain 06/27/19 04/17/25 (Tylenol) cyclobenzaprine 5 mg tablet 5 mg PO TID PRN Pain 04/17/25 04/17/25 meloxicam 7.5 mg tablet 7.5 mg PO BID PRN Pain 04/17/25 04/17/25 propranolol 10 mg tablet 10 mg PO BID 04/17/25 04/17/25 Previous Rx's ?Medication ?Instructions ?Recorded deutetrabenazine 6 mg tablet 6 mg PO BID #60 tabs 03/20/25 (Austedo) lurasidone 20 mg tablet 20 mg PO .7 pm #30 tabs 03/20/25 topiramate 100 mg tablet (Topamax) 100 mg PO BID #60 tabs 03/20/25 trazodone 100 mg tablet 100 mg PO .bedtime PRN insomnia 03/20/25 #30 tabs hydrocodone 5 mg-acetaminophen 325 1 tab PO Q6H PRN pain #14 tabs 04/16/25 mg tablet naproxen 500 mg tablet (Naprosyn) 500 mg PO BID PRN pain #20 tabs 04/16/25 Allergies Allergy/AdvReac Type Severity Reaction Status Date / Time bupropion AdvReac Intermediate Dizziness Verified 03/20/25 08:05 and unsteady gait procaine AdvReac Mild Unknown Verified 03/20/25 08:05 [facility] ED PFSH: Medical History Tardive dyskinesia Gastritis Acid reflux Psychiatric care Marijuana use, episodic chronic back pain Bereavement Unexpected loss of mother in Oct 31 2019 SOB (shortness of breath) H/O drainage of abscess Aftercare following surgery of the genitourinary system Bipolar disorder, current episode mixed, severe, with psychotic features Cigarette nicotine dependence Borderline personality disorder Social phobia, unspecified Chronic back pain Surgical History History of surgery on arm 2014- left arm, Nexplanon broke in arm and had to be surgically removed Status post bilateral salpingectomy 08/16/2019- laparoscopic bilateral fulguration salpingectomy and removal of Nexplanon implant on 08/16/[address] Nguyen at [facility] Family History Father Heart disease valve surgery Grandmother Diabetes paternal Social History Smoking and tobacco/nicotine status: current every day tobacco/nicotine user cigarettes Packs smoked per day: 1 Years cigarettes smoked: 11 Quit status (tobacco/nicotine): considering quitting Second hand smoke exposure: Yes Alcohol intake: never Substance/Drug Use: never Physical Exam Extremity: OTHER: Examination of the right ankle dorsalis pedis posterior tibialis pulse normal neurovascularly intact some tenderness over the lateral malleolus no deformity. Course Vital Signs: Vital signs: Vital Signs Temperature 98.3 F 04/17/25 09:11 Pulse Rate 70 04/17/25 09:58 Respiratory Rate 18 04/17/25 09:11 Blood Pressure 130/93 04/17/25 09:58 Pulse Oximetry 96 04/17/25 09:58 Oxygen Delivery Me thod Room Air 04/17/25 09:11 MDM - Extremity (Nontraumatic) Medical Decision Making Reviewed previous x-ray. No acute fracture noted per radiology read. She has no evidence of any pain swelling or deformity at this time. She has no report of reinjury no new trauma. Splint loosened and reapplied. Discharge patient home we are able to get the podiatry appointment moved up till tomorrow morning continue previously prescribed pain medications. No radiology studies performed this visit Discharge Plan Discharge Patient Disposition: Home Clinical Impression: Ankle sprain and strain Condition: Stable Prescriptions: No Action acetaminophen [Tylenol] 325 mg tablet 650 mg PO TID PRN (Reason: pain) lurasidone 20 mg tablet 20 mg PO .7 pm Qty: 30 1RF Austedo 6 mg tablet 6 mg PO BID Qty: 60 3RF topiramate [Topamax] 100 mg tablet 100 mg PO BID Qty: 60 4RF trazodone 100 mg tablet 100 mg PO .bedtime PRN (Reason: insomnia) Qty: 30 6RF meloxicam 7.5 mg tablet 7.5 mg PO BID PRN (Reason: Pain) propranolol 10 mg tablet 10 mg PO BID cyclobenzaprine 5 mg tablet 5 mg PO TID PRN (Reason: Pain) hydrocodone-acetaminophen 5-325 mg tablet 1 tab PO Q6H PRN (Reason: pain) Qty: 14 0RF naproxen [Naprosyn] 500 mg tablet 500 mg PO BID PRN (Reason: pain) Qty: 20 0RF Discharge Orders: Discharge ED (Routine); Ordered 04/17/25 Ordered By: Artem Bailey Referrals: Sandra Christensen DO [Primary Care Provider, DARKLIGHT INSPECTOR] Discharge Diet: Usual diet Discharge Activity: Limit activity as instructed Patient Instructions: Opioid Safety, Pain Management, Patient Portal & Juan Carlos Instructions Activity Restrictions/Additional Instructions: Thank you for choosing [facility] for your healthcare needs today. It is very important that you follow up as instructed or that you return to the Emergency Department should you have concerns or if your condition changes or worsens in any way. Emergency department visits are focused on emergent conditions, in some cases you may require further evaluation on an outpatient basis. You were seen in the emergency room with complaints of right ankle pain. We reviewed the x-ray that was done yesterday and there is no fracture. On exam you have good blood flow to the foot. No sign of neurovascular compromise at this time we do recommend that you follow-up with podiatry as previously prescribed use the previously prescribed pain medications. The splint was redone somewhat looser. Will discharge you home case management is working on moving up your podiatry appointment to a sooner date. Elevate your foot whenever you are able and you can apply ice as needed. (Please note that included in your discharge packet is information concerning opioid safety and pain management. This information is given to all patients were discharged from the ER regardless of their discharge diagnosis or the medicines they usually take or are prescribed.) Print Language: Welsh Coding Level of Care Code ED Sausage Canner for Viji Mares
[2025-04-17 09:58] VITALS: BP 130/93; PULSE 70; O2SAT 96
== END 2025-04-17 10:01 | disposition home or self-care (01) ==
PROVIDERS: Emergency Provider Family Medicine; PCP Family Medicine
DX: S93.401A Sprain of unspecified ligament of right ankle, initial encounter (principal); F17.210 Nicotine dependence, cigarettes, uncomplicated; X58.XXXA Exposure to other specified factors, initial encounter
CPT/HCPCS: 99282

== ENCOUNTER 2025-04-18 13:21 | Outpatient (CLI) | payer MEDICARE, MEDICAID, SELFPAY | END 2025-04-18 13:22 | disposition home or self-care (01) | LOC: SPT 13:23 | PROVIDERS: PCP Family Medicine; Visit Provider Podiatrist Foot & Ankle Surgery | DX: Z46.89 Encounter for fitting and adjustment of other specified devices (principal); M76.61 Achilles tendinitis, right leg | CPT/HCPCS: L1902 ==

== ENCOUNTER 2025-04-21 05:00 | Outpatient (RCR) | payer MEDICARE, MEDICAID, SELFPAY | END 2025-05-20 23:59 | disposition home or self-care (01) | LOC: SPT 05:00 | PROVIDERS: PCP Family Medicine; Visit Provider Podiatrist Foot & Ankle Surgery | DX: S92.251D Displaced fracture of navicular [scaphoid] of right foot, subsequent encounter for fracture with routine healing (principal); S93.409D Sprain of unspecified ligament of unspecified ankle, subsequent encounter; X58.XXXD Exposure to other specified factors, subsequent encounter | CPT/HCPCS: 97110; 97162 ==

== ENCOUNTER → 2025-05-30 11:15 | Outpatient (BNVA) | payer MEDICARE, MEDICAID, SELFPAY | PROVIDERS: PCP Family Medicine; Visit Provider Podiatrist Foot & Ankle Surgery | DX: M79.671 Pain in right foot (principal); S92.251A Displaced fracture of navicular [scaphoid] of right foot, initial encounter for closed fracture; S93.401A Sprain of unspecified ligament of right ankle, initial encounter; X58.XXXA Exposure to other specified factors, initial encounter; M76.61 Achilles tendinitis, right leg | CPT/HCPCS: 73630; 99213 ==